=== PATIENT | female | born 1970 | race African-American/Black ===

== ENCOUNTER 2018-04-16 06:21 | Day surgery (SDC) | payer OTHER ==
[~2018-04-16 06:21] MED LIST: Buffered Lidocaine 0.9% SYRIN* 5 ML/SYR SYRINGE INTRADERM ONE
[2018-04-16] MEDS ORDERED: ceFAZolin 2 GM PREMIX in ORs 2 GM/50 ML BAG IVPB ONE (06:58)
[2018-04-16] MEDS ORDERED: Buffered Lidocaine 0.9% SYRIN* 5 ML/SYR SYRINGE ONE (06:58)
[2018-04-16] MEDS ORDERED: Bupivacaine 0.5% SDV PF* 30ML VIAL ONE (07:52)
[2018-04-16] MEDS ORDERED: Bupivacaine 0.25% SDV* 30 ML ONE (07:52)
[2018-04-16] MEDS ORDERED: fentaNYL* 50 MCG/ML 2 ML VIAL (100 MCG VIAL) ONE ×2 (08:06→08:46)
[2018-04-16] MEDS ORDERED: Midazolam* 1 MG/ML 2 ML VIAL (2 MG) ONE (08:06)
[2018-04-16] MEDS ORDERED: Ondansetron INJ* 2 MG/ML VIAL ONE (08:34)
[2018-04-16] MEDS ORDERED: Dexamethasone IV* 4 MG/ML 1 ML (4 MG) ONE (08:34)
[2018-04-16] MEDS ORDERED: Bupivacaine 0.5% W/EPI SDV* 10 ML VIAL INJ ONE (08:34)
[2018-04-16] MEDS ORDERED: Lidocaine 2% PF * 5 ML VIAL ONE (08:34)
[2018-04-16] MEDS ORDERED: Propofol* 10 MG/ML 20 ML BTL IV PUSH ONE (08:34)
[2018-04-16] MEDS ORDERED: HYDROmorphone INJ1* 1 MG/ML SYRINGE IV PRN (09:16)
[2018-04-16] MEDS ORDERED: Naloxone* 0.4 MG/ML 1 ML VIAL IV PRN (09:16)
[2018-04-16] MEDS ORDERED: Ketorolac INJ* 30 MG/ML 1 ML VIAL IV PRN (09:16)
[2018-04-16] MEDS ORDERED: oxyCODONE TAB* 5 MG TAB PO PRN (09:16)
[2018-04-16] MEDS ORDERED: Ketorolac INJ* 30 MG/ML 1 ML VIAL ONE (09:38)
[2018-04-16 10:51] VITALS: BP 140/91
--- NOTE | 2018-04-16 17:40 | OP ---
Operative Report - Blank - Operative Report Date of Operation: 04/16/18 Note: PATIENT: Josephine Garibay DATE OF : 1970 DATE OF SURGERY: 04/16/2018 SURGEON: Dom Cartwright MD FRUIT PICKER: DB Garcia, whos assistance was necessary for positioning, retraction, help with instrumentation, and closure. ANESTHESIOLOGIST: Dr. Caceres PREOPERATIVE DIAGNOSIS: Left ankle osteochondral lesion of the talus POSTOPERATIVE DIAGNOSIS: Left ankle osteochondral lesion of the talus OPERATION: 1. Left ankle arthroscopy with extensive debridement. 2. Curettage and microfracture of talar osteochondral lesion. ANESTHESIA: LMA + block IMPLANTS: none TOURNIQUET TIME: Less than 1 hour with a well-padded thigh tourniquet at 250mmHg SPECIMENS: none ESTIMATED BLOOD LOSS: minimal COMPLICATIONS: none STATUS: Stable from the operating room to the recovery room and then home. INDICATIONS FOR PROCEDURE: Josephine Has had persistent pain at her left ankle and an OLT. Both operative and non operative treatment alternatives were reviewed. Further, the nature and risks of surgery were reviewed in careful detail, in the office as well as the pre-operative holding area. Our discussions regarding the risks of surgery included, but were not limited to, infection, wound problems, nerve injury, neuroma, RSD, persistent symptoms, blood clot, failure of the surgery, and even the remote chance of catastrophic complication, including loss of limb. DESCRIPTION OF PROCEDURE: The patient was seen in the preoperative holding unit and informed written consent was obtained. The appropriate extremity was marked. The patient was then brought to the operating room and carefully positioned on the operating room table. Anesthesia was induced. All bony prominences were padded with great care. A chlorhexidine based pre-scrub was performed followed by a chloraprep prep and drape in standard sterile fashion. A surgical safety pause was then conducted in which we confirmed the appropriate patient, extremity, planned procedure, availability of equipment, indication and administration of prophylactic antibiotics, and DVT prophylaxis in the form of a compression boot on the non-surgical extremity. An Esmarch exsanguination of the limb was then performed and the tourniquet inflated. The leg was positioned in the noninvasive ankle arthroscopy leg workman setup. I began by establishing the anteromedial portal. I utilized a spinal needle for this. Great care was taken to protect the superficial neurovascular structures. Under direct visualization, I then established an anterolateral portal. Great care was taken to protect the superficial peroneal nerve. I utilized the full radius shaver to remove a considerable amount of synovitis from the anterior aspect of the ankle joint. This was carefully removed to give a nice view of the ankle joint. There was an apparent osteochondral lesion of the talus at the lateral talar dome. There were no additional chondral lesions appreciated and the rest of the cartilage looked quite good. At this point, I utilized a ringed curette to remove loose debris from within the osteochondral lesion. This was curetted back to a stable rim around the perimeter of lesion. The calcified cartilage layer was then removed. I then utilized the microfracture awl to microfracture the lesion. There was healthy bleeding from the subchondral bone. I then again utilized the full radius shaver to remove all additional debris from the ankle joint. I removed the arthroscopic equipment and closed the portals utilizing 3-0 nylon suture. At this point, a sterile dressing was applied. The patient was then awakened from anesthesia and transferred to the recovery room in stable condition. There were no complications. All needle and sponge counts were correct at the end of the case. ATTESTATION: I attest I was present and scrubbed and performed the critical portions of the procedure myself. POSTOPERATIVE PLAN: The patient will remain nonweightbearing for an anticipated duration of four weeks. Follow up will be in two weeks for likely suture removal, Steri-Strip application.
== END 2018-04-16 10:52 | disposition home or self-care (01) ==
LOC: OR 06:21
PROVIDERS: ATTEND Orthopaedic Surgery
DX: M93.272 Osteochondritis dissecans, left ankle and joints of left foot (principal); Z87.891 Personal history of nicotine dependence; G89.18 Other acute postprocedural pain; I10 Essential (primary) hypertension; F41.9 Anxiety disorder, unspecified
CPT/HCPCS: J0690; J1100; J1885; J2250; J2405; J2704; J3010

== ENCOUNTER 2018-07-06 12:19 | Emergency (ER) | payer OTHER ==
--- OUTSIDE RECORDS SUMMARY | 2018-07-06 13:03 | XMS REPORT | Continuity of Care Document ---
:1970 External Reference #:[id number] Author Name Bishop Michelle Care Team Providers Name Role Phone Rama Daniels MD Primary Care Physician Unavailable Payers Type Date Identification Numbers Payment Provider Subscriber Effective: Policy Number: [id number] [facility] Mariam Palomares 2016 (Oon) Group Number: [id number] [address] Group Name: [place] [address] PayID: [id number] Policy Number: [id number] Medicare Mariam Palomares PayID: [id number] [address] [place] [address] Policy Number: [id number] Medicaid Mariam Palomares PayID: [id number] [address] [place] [address] Advance Directives Description No Information Available Problems Date Description Provider Status Onset: 03/05/2017 Viral hepatitis C London Leroy M.D.,FACP Active Note: VL negative Onset: 10/29/2011 Benign essential hypertension Esmer Joseph M.D. Onset: 05/16/2014 Bipolar disorder Brian Macias M.D. 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[place], Active intervertebral disc without Margarito,FACP myelopathy Onset: 11/13/2016 External hemorrhoids Fredy Diallo NP Active Onset: 11/13/2016 Constipation Fredy Diallo NP Active Onset: 01/14/2017 Hypoxemia Tahira Matias DNP, RN, Active DELIVERY AIDE-BC Onset: 01/14/2017 Hypersomnia Tahira Matias DNP, RN, Active DELIVERY AIDE-BC Onset: 01/14/2017 Snoring Tahira Matias DNP, RN, Active DELIVERY AIDE-BC Onset: 03/27/2018 Osteochondritis dissecans Dom Cartwright MD Active Onset: 04/16/2018 Other synovitis and Dom Cartwright MD Active tenosynovitis, unspecified ankle and foot Onset: 01/24/2014 Sprain of ankle Jesus Malave M.D. Inactive Inactive: 01/20/2015 Onset: 06/27/2014 Low back pain Amilcar Sr M.D. Inactive Inactive: 02/01/2015 Onset: 11/19/2016 Difficulty breathing Lachelle Duggan MD Inactive Inactive: 03/05/2017 Onset: 07/01/2014 Chronic hepatitis C London Leroy M.D.,FACP Resolved Resolved: 02/01/2015 Note: exposure, zero viral load Onset: 05/16/2014 Anemia Brian Macias M.D. Resolved Resolved: 02/01/2015 Family History Date Family Member(s) Problem(s) Comments General Diabetes Father due to Alcohol () Related Father due to Stroke () Mother Diabetes, Insulin Dependent Mother Hypertension Children 3 sons all alive and well Siblings 3 sisters all with hypertension 2 sisters with DM First Brother Hypertension 1/2 brother Maternal Grandfather due to Hypertension () Maternal Grandfather due to Diabetes () Maternal Grandmother due to Diabetes () Maternal Grandmother due to Hypertension () Social History Type Date Description Comments Sex Unknown Marital Status Lives With Boyfriend 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, 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 Tobacco Use Start: Unknown End: Former Cigarette Smoker Unknown Smoking Status Reviewed: 07/06/18 Former Cigarette Smoker ETOH Use 07/01/2014 Occasionally consumes alcohol Tobacco Use Start: Unknown End: Patient is a former smoker Unknown Recreational Drug Use Denies Drug Use Exercise Type/Frequency Exercises sporadically Currently Active Patient is currently sexually active Allergies, Adverse Reactions, Alerts Date Description Reaction Status Severity Comments 10/29/2011 Sulfa Antibiotics hives Active 10/29/2011 Buspar nausea, vomiting Active 11/11/2013 [place] Active Medications Medication Date Status Form Strength Qnty SIG Indications Ordering Provider Gabapentin 07/06 Active Capsules 300mg 90cap take one G89.4 s tablet MD Jeremiah three times a day Cane 06/12 Active Misc use as M93.272 needed anahi Cartwright MD stability Aspirin 04/16 Active Tablets 325mg 14tab take 1 s tab daily Ananda, x 14 days M.D. post op Knee Scooter 04/15 Active M93.272 MD Gabbie Oxycodone HCL 03/05 Active Tablets 20mg 60tab 07/08-1 tab s by mouth Peng Leroy, every 4 M.D.,FACP hours as needed Zyrtec Allergy 12/05 Active Tablets 10mg 30tab 1 by s mouth Peng Leroy, every day M.D.,FACP Ibuprofen 09/11 Active Tablets 800mg 30tab take 1 s tablet by Ananda mouth M.D. three times daily as needed pain Latuda 10/12 Active Tablets 80mg take 1 tablet by Peng Leroy, mouth at M.D.,FACP bedtime Compression 06/23 Active Misc 20-30MMHG 1Pair knee high, allyson Tomas M.D. during day, remove at night Lactulose 05/25 Active Solution 20GM/30ML 1500m 30 l millilite Peng Leroy, rs by M.DRowena,FACP mouth once a day for 1 week, then as needed severe constipat ion Ondansetron HCL 02/22 Active Tablets 4mg 60tab one to s two Thom, tablets M.DRowena every 8 hours as needed for nausea Colace 02/21 Active Capsules 100mg 60cap take 1 K59.09 s capsule Peng Leroy, by mouth M.D.,FACP two times daily as needed - maximum daily dose of 2 per day Amitiza 01/20 Active Capsules 24mcg 180ca take one K59.09 ps capsule Peng Leroy, by mouth M.DRowena,FACP twice a day Amlodipine 05/17 Active Tablets 10mg 90tab take 1 [place] s tablet by Peng Leroy, mouth M.D.,FACP once daily Divalproex Sodium Active Tablets ER 500mg 90tab 3 tabs at [facility] Owen ER /0000 24HR s at Peng Leroy, bedtime M.DRowena,FACP Alprazolam Active Tablets 2mg 1/2 qid Unknown /0000 Adderall Active Tablets 30mg 1 by Unknown /0000 mouth once daily Anusol-HC 11/13 Hx Suppository 25mg 12uni 1 supp pr K64.8 ts bid-hasnt AARON Diallo - used them 09/22 Dibucaine 11/13 Hx Ointment 1% 28.35 apply K64.8 0gm topical Yoel PROGRESS DEVELOPER - oint 09/22 sparingly up to 6 times a day Cipro 07/02 Hx Tablets 250mg 14tab one by N39.0 s mouth Varn, N.P. - twice 07/09 daily for 7 days [facility] 01/22 Hx Syrup 5mg/5ML 354ml 10 J30.2 Allergy millilite Peng Leroy, - rs by Margarito,FACP 01/13 mouth daily Anusol-HC 10/12 Hx Suppository 25mg 12uni 1 supp pr K64.9 ts bid AARON Diallo - 10/12 Dibucaine 10/12 Hx Ointment 1% 28.35 apply K64.9 Fredy 0gm topical Yoel PROGRESS DEVELOPER - oint 10/12 sparingly up to 6 times a day Lidocaine 10/12 Hx Cream 5% 30gm apply Fredy (Anorectal) thin Yoel PROGRESS DEVELOPER - layer 09/22 topically to hemorrhoi ds as needed for pain Proctosol HC 10/12 Hx Cream 2.5% 28.35 apply Fredy 0gm tid; AARON Diallo - alternate 09/22 with the lidocaine cream Latuda 10/04 Hx Tablets 40mg 60tab 2 by [place] s mouth Peng Leroy, - every day M.D.,FACP 10/12 Oxycodone-Acetami 05/16 Hx Tablets 10-325mg 120ta take 1 [place] bs tablet by Peng Leroy, - mouth M.D.,FACP 09/05 every to 6 hours as needed for pain Movantik 05/16 Hx Tablets 25mg 30tab 1 by R10.31 Fredy s mouth AARON Diallo - every 05/25 Tizanidine HCL 04/17 Hx Capsules 4mg 30cap 1 cap bid s Ordering - Provider 05/16 Oxycodone HCL 04/13 Hx Capsules 5mg 30cap 1 tab by River s mouth Jessica, - every 4-6 M.D. 05/16 hours needed Oxycodone HCL 03/01 Hx Tablets 10mg 60tab 1 by Jesus s mouth Ananda, - every 4-6 M.D. 04/13 hours needed pain Ondansetron 02/22 Hx Tablets 4mg 15tab 1 three Jesus Dispers s sepideh a Ananda, - day as M.D. 05/16 needed for nausea Ibuprofen 02/21 Hx Tablets 600mg 30tab 1 tab po Fredy s q 6 hrs AARON Diallo - prn 10/12 Aspirin 02/21 Hx Tablets 325mg 30tab 1 by Jesus s lefty Malave, - every day M.D. 10/12 until post op visit Metronidazole 01/30 Hx Gel 0.75% 25g 5 grams Fredy once AARON Diallo - daily 01/30 vaginally x's 5 days Clindamycin HCL 01/30 Hx Capsules 300mg 14cap 1 capsule Fredy s po bid AARON Diallo - x's 7 Ferrous Fumarate 09/21 Hx Tablets 324mg 90tab 1 every s day Peng Leroy, - M.D.,[facility] 01/20 Oxycodone HCL 07/01 Hx Tablets 5mg 90tab 1 by 724.2 Fredy s mouth Cymraes, PROGRESS DEVELOPER - three 03/01 times day as needed Meloxicam 07/01 Hx Tablets 7.5mg 60tab 1 by 724.2 s mouth Peng Leroy, - twice a M.D.,[facility] Fiber-Lax 07/01 Hx Tablets 625mg 360ta take 2 724.2 bs tablets Peng Leroy, - by mouth Margarito,[facility] 01/20 two times a day Lactulose 07/01 Hx Solution 20GM/30ML 1bott 30 724.2 le millilite Peng Leroy, - rs by Margarito,[facility] 01/20 mouth twice a day as needed severe constipat ion Hydrochlorothiazi 05/17 Hx Capsules 12.5mg 60cap 1 cap po Brian s daily Macias, - M.D. 07/01 Tramadol HCL 05/16 Hx Tablets 50mg 60tab 1 by 724.2 s mouth Remberto, - every 6 M.D. 07/01 hours needed pain Lisinopril 05/16 Hx Tablets 10mg 60tab 1 by 401.9 s mouth po Macias, - twice a M.D. Hydrocodone-Ibupr 03/02 Hx Tablets 7.5-200mg 120ta 1 every Unknown bs 6 hours - as needed 04/12 Oxycodone HCL 02/03 Hx Tablets 5mg 80tab 1-2 tab s by mouth Ananda, - every 4-6 M.D. 04/12 hours needed for breakthro ugh pain Aspirin Ec 01/[address] 325mg 30tab One s tablet po Gunnar, - daily M.D. 04/12 Acetaminophen ER 01/25 Hx Tablets ER 650mg 120ta One bs tablet po Gunnar, - every 6 M.D. 04/12 hours pr pain. Do not exceed 4 tablets per day. Ibuprofen 01/25 Hx Tablets 600mg 90tab take one s tab by Cyrus, - mouth M.D. 01/20 times a day as needed pain and inflammat ion. Tramadol HCL 11/10 Hx Tablets 50mg 50tab four s times a Ananda, - day as M.D. 04/12 needed Percocet 10/12 Hx Tablets 5-325mg 60tab 1 tab by s mouth Ananda, - every 4-6 M.D. 04/12 hours needed for pain [place] 10/06 Hx Tablets 5-325mg 40tab 1-2 tab s by mouth Ananda, - every 6 M.D. 11/11 hours needed pain Klor-Con M20 07/05 Hx Tablets ER 20Meq 45tab 1.5 s tablets Macias, - by mouth M.D. 07/01 every day Klor-Con 10 06/01 Hx Tablets ER 10Meq 60tab 1 po qd Erlin Russell M.D. 07/05 Klor-Con 05/25 Hx Packet 20Meq 30uni 1 po qd ts Leroy - M.DRowena 06/01 Ferrous Sulfate 05/11 Hx Tablets 324(65Fe) 60tab 1 po bid mg s Erlin Harper M.D. 10/05 Ultram 03/25 Hx Tablets 50mg 40tab 1 po q6 s hr terri Mosley, - pain M.D. 10/05 Ferrous Sulfate 02/09 Hx Tablets 325(65Fe) 60tab 1 po bid mg girish Mcgregor - M.DRowena 05/11 Fluconazole 01/13 Hx Tablets 150mg 2tabs 1 po qd 112.9 Samanta /2013 Erlin Mcgregor M.DRowena 10/05 Alprazolam 01/13 Hx Tablets 0.5mg 10tab take 1 300.02 Basia s tab 2 x Leroy, - per day M.D. 10/05 as needed for anxiety Citalopram 01/13 Hx Tablets 10mg 30tab Take One 300.02 Basia Hydrobromide s Tablet By Leroy, - Mouth M.D. 03/17 Daily Flagyl 11/05 Hx Tablets 250mg 40tab 1 po qid Erlin Russell M.D. 01/13 Metrogel-Vaginal 11/03 Hx Gel 0.75% 1unit apply s once a Leroy, - day x 7 MZohra Flagyl 09/24 Hx Tablets 250mg 40tab 1 po qid Erlin Russell M.D. 10/29 Ferrous Fumarate 09/22 Hx Tablets 325(106Fe 30tab 1 Tablet ) mg s qd Erlin Harper M.D. 02/09 Klor-Con 10 09/22 Hx Tablets ER 10Meq 30tab 2 po qd Erlin Russell M.D. 05/25 Diazepam Hx Tablets 5mg 2tabs - 10/28 Hydrochlorothiazi Hx Tablets 25mg 30tab 1 po qd Basia Erlin Russell M.D. 04/12 Norvasc Hx Tablets 10mg 30tab 1 po qd Erlin Russell M.D. 05/16 Klor-Con Hx Tablets ER 20Meq 30tab 1 po qd s - 09/22 Ferrous Hx 325(65Fe) 1 Tablet Unknown mg qd - 09/22 Hydroxyzine HCL Hx Tablets 25mg 40tab 2 po qhs s - 10/28 Diazepam Hx Tablets 10mg 60tab 1 po prn girish anxiety Erlin Harper M.D. 12/31 Tramadol HCL 00/00 Hx Unknown - 04/12 Ibuprofen 00/00 Hx Unknown - 01/25 Ferrous Sulfate Hx Tablets 325mg 90tab 1 every Bryant s day Erlin Bridges M.D. 09/21 Flexeril Hx Tablets 10mg 60tab 1 by s mouth - three 01/20 times day as needed Naprosyn Hx Tablets 500mg 60tab twice Unknown /0000 s daily - with food 05/16 as needed Trazodone HCL Hx Tablets 100mg 30tab 2 by [place] /0000 s mouth Peng Leroy, - every M.D.,FACP 09/22 night at bedtime Ibuprofen Hx Tablets 800mg 90tab by mouth 724.2 Unknown /0000 s three - times a 07/01 day needed Diazepam Hx Tablets 10mg 90tab 1 by Unknown /0000 s mouth - three 01/20 times day prn for anxiety Lupeda Hx (Bipolar Unknown /0000 Med) - takes 07/01 Hydrochlorothiazi Hx Tablets 25mg 30tab 1 by Unknown de /0000 s mouth - every day 05/16 Latuda Hx Tablets 80mg 30tab take 1 [place] /0000 s tablet by Peng Leroy, - mouth at M.D.,FACP 10/04 bed Alprazolam Hx Tablets 1mg take 1 Unknown /0000 tablet by - mouth 11/13 times a day if needed Diclofenac Sodium Hx Tablets DR 75mg take 1 Unknown /0000 tablet - twice a 09/05 day food Methocarbamol Hx Tablets 750mg 1 by Unknown /0000 mouth 4 - times 10/12 daily needed Percocet Hx Tablets 5-325mg 1-2 by Unknown /0000 mouth - every 4 10/12 to hours as needed pain Oxycodone HCL Hx Tablets 10mg 1 tablet Unknown /0000 by mouth - tid prn 10/12 Baclofen Hx Tablets 10mg take 1/2 Unknown /0000 tab every - 8 hours 07/02 as needed for muscle spasm Medications Administered in Office Medication Date Status Form Strength Qnty SIG Indications Ordering Provider PPD Administered Injection Fredy 7 Cymraes, PROGRESS DEVELOPER PPD Administered Injection Fredy 5 Cymraes, PROGRESS DEVELOPER PPD Administered Injection Nurse Visit 4 C PPD Administered Injection Basia Harper M.D. Immunizations CPT Code Status Date Vaccine Lot # [id number] Given 04/12/2015 Afluria Vaccine 64745 Given 01/25/2015 Tdap - Tetanus/Diptheria/Acellular Pertussis [id number] 21144 Given 08/27/2013 Measles Mumps And Rubella MMR [id number] Given 05/03/1982 Tetanus And Diptheria (Td) For Adult Use Preservative Free 49650 Given 10/22/1972 Measles Mumps And Rubella MMR [id number] Given 01/25/1971 DTaP Vaccine Younger Than 7 71683 Given 08/22/1970 Measles Mumps And Rubella MMR [id number] Given 06/13/1970 Measles Mumps And Rubella MMR 19338 Given 1970 DTaP Vaccine Younger Than 7 38107 Given 1970 DTaP Vaccine Younger Than 7 74299 Given 1970 DTaP Vaccine Younger Than 7 Vital Signs Date Vital Result Comment 07/06/2018 11:35am Height 65.5 inches 5'5.50" Heart Rate 85 /min BP Systolic Sitting 178 mmHg BP Diastolic Sitting 106 mmHg O2 % BldC Oximetry 99 % 06/02/2018 9:53am Height 65.5 inches 5'5.50" Weight 180.00 lb Respiratory Rate 16 /min Pain Level 9 BMI (Body Mass Index) 29.5 kg/m2 05/01/2018 8:47am Heart Rate 76 /min BP Systolic 136 mmHg BP Diastolic 86 mmHg Respiratory Rate 16 /min Body Temperature 97.8 F Pain Level 8 03/27/2018 1:05pm Height 65.5 inches 5'5.50" Weight 180.00 lb BP Systolic 128 mmHg BP Diastolic 88 mmHg Respiratory Rate 18 /min Pain Level 10 BMI (Body Mass Index) 29.5 kg/m2 02/25/2018 11:13am Height 65.5 inches 5'5.50" Heart Rate 55 /min BP Systolic 136 mmHg BP Diastolic 94 mmHg Respiratory Rate 20 /min Pain Level 0 O2 % BldC Oximetry 97 % 02/11/2018 10:54am Height 65.5 inches 5'5.50" Weight 180.00 lb Heart Rate 54 /min BP Systolic Sitting 130 mmHg BP Diastolic Sitting 86 mmHg Respiratory Rate 18 /min Pain Level 8 BMI (Body Mass Index) 29.5 kg/m2 12/31/2017 3:11pm Height 65.5 inches 5'5.50" Heart Rate 67 /min BP Systolic 114 mmHg BP Diastolic 80 mmHg Respiratory Rate 16 /min Pain Level 8 O2 % BldC Oximetry 93 % 09/24/2017 11:50am Height 65.5 inches 5'5.50" Weight 181.00 lb Heart Rate 72 /min BP Systolic Sitting 154 mmHg BP Diastolic Sitting 88 mmHg Respiratory Rate 12 /min Pain Level 8 BMI (Body Mass Index) 29.7 kg/m2 03/05/2017 2:03pm Heart Rate 98 /min BP Systolic Sitting 170 mmHg BP Diastolic Sitting 88 mmHg Body Temperature 97.9 F O2 % BldC Oximetry 98 % 01/14/2017 4:25pm Height 65.5 inches 5'5.50" Weight 181.00 lb Heart Rate 68 /min BP Systolic 130 mmHg BP Diastolic 88 mmHg Respiratory Rate 16 /min Pain Level 8 BMI (Body Mass Index) 29.7 kg/m2 11/19/2016 11:57am Height 65.5 inches 5'5.50" Weight 187.00 lb Heart Rate 65 /min BP Systolic Sitting 128 mmHg BP Diastolic Sitting 82 mmHg Respiratory Rate 16 /min O2 % BldC Oximetry 98 % BMI (Body Mass Index) 30.6 kg/m2 Neck Circumference in inches 14 11/13/2016 8:21am Height 65.5 inches 5'5.50" Weight 187.00 lb Heart Rate 66 /min BP Systolic Sitting 148 mmHg BP Diastolic Sitting 94 mmHg Body Temperature 98.0 F O2 % BldC Oximetry 97 % BMI (Body Mass Index) 30.6 kg/m2 10/09/2016 11:05am Height 65.5 inches 5'5.50" Weight 189.25 lb Heart Rate 71 /min BP Systolic Sitting 152 mmHg BP Diastolic Sitting 88 mmHg Body Temperature 99.4 F O2 % BldC Oximetry 97 % BMI (Body Mass Index) 31.0 kg/m2 07/02/2016 3:43pm Height 65.5 inches 5'5.50" Weight 187.00 lb Heart Rate 57 /min BP Systolic 124 mmHg BP Diastolic 70 mmHg Body Temperature 98.6 F O2 % BldC Oximetry 99 % BMI (Body Mass Index) 30.6 kg/m2 06/19/2016 11:23am Height 65.5 inches 5'5.50" Weight 185.00 lb BP Systolic Sitting 122 mmHg BP Diastolic Sitting 80 mmHg Pain Level 9 BMI (Body Mass Index) 30.3 kg/m2 01/10/2016 4:10pm Height 65 inches 5'5" Weight 190.00 lb Respiratory Rate 16 /min Pain Level 7 BMI (Body Mass Index) 31.6 kg/m2 10/17/2015 8:13am Weight 190.00 lb Heart Rate 72 /min BP Systolic Sitting 128 mmHg BP Diastolic Sitting 88 mmHg 10/13/2015 2:36pm Height 65 inches 5'5" Weight 190.00 lb Heart Rate 68 /min BP Systolic Sitting 134 mmHg BP Diastolic Sitting 96 mmHg Body Temperature 97.9 F O2 % BldC Oximetry 95 % BMI (Body Mass Index) 31.6 kg/m2 09/06/2015 12:00pm Height 65 inches 5'5" Weight 165.00 lb Heart Rate 88 /min BP Systolic Sitting 145 mmHg BP Diastolic Sitting 94 mmHg Body Temperature 99.0 F Pain Level 10 10 O2 % BldC Oximetry 95 % BMI (Body Mass Index) 27.5 kg/m2 08/29/2015 8:24am Heart Rate 86 /min BP Systolic Sitting 122 mmHg BP Diastolic Sitting 88 mmHg 07/21/2015 8:54am Height 65 inches 5'5" Weight 179.00 lb Pain Level 8 BMI (Body Mass Index) 29.8 kg/m2 06/21/2015 2:13pm Height 65 inches 5'5" Weight 179.00 lb Heart Rate 70 /min BP Systolic 130 mmHg BP Diastolic 80 mmHg Pain Level 10 BMI (Body Mass Index) 29.8 kg/m2 05/16/2015 2:38pm Height 65 inches 5'5" Weight 179.00 lb Pain Level 5 BMI (Body Mass Index) 29.8 kg/m2 05/16/2015 10:06am Height 65 inches 5'5" Weight 179.00 lb Heart Rate 72 /min BP Systolic 150 mmHg BP Diastolic 88 mmHg Body Temperature 98.8 F BMI (Body Mass Index) 29.8 kg/m2 04/28/2015 3:00pm Height 65 inches 5'5" Weight 179.00 lb Pain Level 3 BMI (Body Mass Index) 29.8 kg/m2 03/31/2015 11:14am Height 65 inches 5'5" Weight 179.00 lb Pain Level 9 BMI (Body Mass Index) 29.8 kg/m2 03/23/2015 2:58pm Height 65 inches 5'5" Weight 179.00 lb Pain Level 3 BMI (Body Mass Index) 29.8 kg/m2 03/01/2015 4:09pm Height 65 inches 5'5" Weight 179.00 lb Body Temperature 97.3 F Pain Level 8 BMI (Body Mass Index) 29.8 kg/m2 02/15/2015 4:08pm Height 65 inches 5'5" Weight 179.00 lb Heart Rate 63 /min BP Systolic 160 mmHg BP Diastolic 100 mmHg BMI (Body Mass Index) 29.8 kg/m2 02/15/2015 3:13pm Height 65 inches 5'5" Weight 179.00 lb Pain Level 8 BMI (Body Mass Index) 29.8 kg/m2 02/08/2015 2:41pm Height 65 inches 5'5" Weight 179.00 lb Pain Level 10 BMI (Body Mass Index) 29.8 kg/m2 02/01/2015 4:20pm Height 65.5 inches 5'5.50" Weight 179.50 lb Heart Rate 73 /min BP Systolic Sitting 120 mmHg BP Diastolic Sitting 80 mmHg O2 % BldC Oximetry 96 % BMI (Body Mass Index) 29.4 kg/m2 01/25/2015 2:42pm Height 65.5 inches 5'5.50" Weight 179.00 lb Heart Rate 114 /min BP Systolic Sitting 132 mmHg BP Diastolic Sitting 90 mmHg Body Temperature 98.4 F O2 % BldC Oximetry 93 % BMI (Body Mass Index) 29.3 kg/m2 01/20/2015 11:02am Weight 183.00 lb Heart Rate 68 /min BP Systolic Sitting 142 mmHg BP Diastolic Sitting 92 mmHg Body Temperature 98.6 F O2 % BldC Oximetry 98 % 07/01/2014 3:32pm Weight 165.00 lb Heart Rate 76 /min BP Systolic Sitting 112 mmHg BP Diastolic Sitting 66 mmHg Body Temperature 98.9 F 06/27/2014 3:19pm Height 65 inches 5'5" Weight 166.00 lb Heart Rate 72 /min BP Systolic Sitting 112 mmHg BP Diastolic Sitting 78 mmHg Pain Level 8 back/L leg BMI (Body Mass Index) 27.6 kg/m2 05/16/2014 2:12pm Height 65 inches 5'5" Weight 164.50 lb Heart Rate 69 /min BP Systolic Sitting 114 mmHg BP Diastolic Sitting 78 mmHg Body Temperature 97.4 F O2 % BldC Oximetry 98 % BMI (Body Mass Index) 27.4 kg/m2 05/16/2014 11:09am Height 65 inches 5'5" Weight 164.00 lb Heart Rate 84 /min BP Systolic Sitting 130 mmHg BP Diastolic Sitting 86 mmHg Pain Level 10 Neck BMI (Body Mass Index) 27.3 kg/m2 04/13/2014 1:37pm Height 65 inches 5'5" Heart Rate 64 /min BP Systolic 140 mmHg BP Diastolic 90 mmHg 03/23/2014 2:27pm Height 65 inches 5'5" Weight 168.00 lb Pain Level 6 BMI (Body Mass Index) 28.0 kg/m2 03/17/2014 9:08am Weight 158.00 lb Heart Rate 74 /min BP Systolic Sitting 122 mmHg BP Diastolic Sitting 70 mmHg 03/02/2014 3:57pm Height 65 inches 5'5" Weight 155.00 lb Heart Rate 71 /min BP Systolic 147 mmHg BP Diastolic 90 mmHg BMI (Body Mass Index) 25.8 kg/m2 02/11/2014 10:10am Height 65 inches 5'5" Weight 155.00 lb Body Temperature 98.7 F BMI (Body Mass Index) 25.8 kg/m2 01/28/2014 9:04am Height 65 inches 5'5" Weight 155.00 lb Body Temperature 97.1 F BMI (Body Mass Index) 25.8 kg/m2 01/13/2014 3:10pm Height 65 inches 5'5" Weight 155.00 lb Heart Rate 71 /min BP Systolic 157 mmHg BP Diastolic 100 mmHg BMI (Body Mass Index) 25.8 kg/m2 11/10/2013 1:46pm Height 65 inches 5'5" Weight 155.00 lb Heart Rate 74 /min BP Systolic 134 mmHg BP Diastolic 92 mmHg BMI (Body Mass Index) 25.8 kg/m2 10/26/2013 3:12pm Height 65 inches 5'5" Weight 155.00 lb Heart Rate 68 /min BP Systolic 122 mmHg BP Diastolic 79 mmHg BMI (Body Mass Index) 25.8 kg/m2 08/27/2013 9:05am Heart Rate 57 /min BP Systolic Sitting 130 mmHg BP Diastolic Sitting 78 mmHg 03/25/2013 11:21am Height 65 inches 5'5" Weight 155.00 lb Heart Rate 65 /min BP Systolic 140 mmHg BP Diastolic 94 mmHg BMI (Body Mass Index) 25.8 kg/m2 02/02/2013 10:07am Weight 157.00 lb Heart Rate 62 /min BP Systolic Sitting 110 mmHg BP Diastolic Sitting 88 mmHg 01/13/2013 10:48am Weight 155.00 lb Heart Rate 93 /min BP Systolic Sitting 130 mmHg BP Diastolic Sitting 90 mmHg 10/29/2012 10:36am Weight 162.75 lb Heart Rate 61 /min BP Systolic Sitting 137 mmHg BP Diastolic Sitting 91 mmHg 09/25/2012 11:57am Height 65 inches 5'5" Weight 156.25 lb Heart Rate 78 /min BP Systolic Sitting 118 mmHg BP Diastolic Sitting 78 mmHg BMI (Body Mass Index) 26.0 kg/m2 09/22/2012 1:04pm Height 65 inches 5'5" Weight 156.00 lb Heart Rate 70 /min BP Systolic Sitting 120 mmHg BP Diastolic Sitting 70 mmHg BMI (Body Mass Index) 26.0 kg/m2 12/11/2011 9:48am Height 65 inches 5'5" Weight 151.00 lb Heart Rate 64 /min BP Systolic Sitting 130 mmHg BP Diastolic Sitting 90 mmHg BMI (Body Mass Index) 25.1 kg/m2 10/29/2011 9:07am Height 65 inches 5'5" Weight 153.00 lb Heart Rate 54 /min BP Systolic 140 mmHg BP Diastolic 80 mmHg BP Systolic Sitting 140 mmHg BP Diastolic Sitting 80 mmHg BP Systolic Standing 138 mmHg BP Diastolic Standing 84 mmHg Respiratory Rate 16 /min BMI (Body Mass Index) 25.5 kg/m2 Results Test Date Facility Test Result H/L Range Note Drug Abuse 03/05/2017 [facility] Urine Amphetamine Negative ng/ mL N 1 [address] [place] [address] [phone] Urine Barbiturates Negative ng/mL N 2 Urine Benzodiazepines Presumptive Posi <SEE NOTE> ng/mL N 3 Urine Cocaine Negative ng/mL N 4 Urine Phencyclidine Negative ng/mL N Cutoff: 25 Urine Tetrahydrocannabinol Negative ng/mL N Cutoff: 50 5 Creatinine, Urine 68.1 mg/dL N Specific [place] 1.007 N pH 7.3 N Oxidants Negative N 6 Adulterants Comment Normal N Codeine, Ur Not Detected ng/mL N Cutoff: 25 7 Abqslin-5-ftdy-glucuronide, Ur Not Detected ng/mL N 8 Morphine, Ur Not Detected ng/mL N Cutoff: 25 9 Hjraksfl-9-vowu-glucuronide, U Not Detected ng/mL N 10 6-monoacetylmorphine, Ur Not Detected ng/mL N Cutoff: 25 11 Hydrocodone, Ur Not Detected ng/mL N Cutoff: 25 12 Norhydrocodone, Ur Not Detected ng/mL N Cutoff: 25 13 Dihydrocodeine, Ur Not Detected ng/mL N Cutoff: 25 14 Hydromorphone, Ur Not Detected ng/mL N Cutoff: 25 15 Srvhgitdhzoon1tjtfacsquwesvly Not Detected ng/mL N 16 Oxycodone, Ur Not Detected ng/mL N Cutoff: 25 17 Noroxycodone, Ur Not Detected ng/mL N Cutoff: 25 18 Oxymorphone, Ur Not Detected ng/mL N Cutoff: 25 19 Vmzjflhybuk-1-afaz-glucuronide Not Detected ng/mL N 20 Noroxymorphone, Ur Not Detected ng/mL N Cutoff: 25 21 Fentanyl, Ur Not Detected ng/mL N Cutoff: 2 22 Norfentanyl, Ur Not Detected ng/mL N Cutoff: 2 23 Meperidine, Ur Not Detected ng/mL N Cutoff: 25 24 Normeperidine, Ur Not Detected ng/mL N Cutoff: 25 25 Naloxone, Ur Not Detected ng/mL N Cutoff: 25 26 Xvipgdnz-7-nkco-glucuronide, U Not Detected ng/mL N 27 Methadone, Ur Not Detected ng/mL N Cutoff: 25 28 Eddp, Ur Not Detected ng/mL N Cutoff: 25 29 Propoxyphene, Ur Not Detected ng/mL N Cutoff: 25 30 Norpropoxyphene, Ur Not Detected ng/mL N Cutoff: 25 31 Tramadol, Ur Not Detected ng/mL N Cutoff: 25 32 O-desmethyltramadol, Ur Not Detected ng/mL N Cutoff: 25 33 Tapentadol, Ur Not Detected ng/mL N Cutoff: 25 34 N-desmethyltapentadol, Ur Not Detected ng/mL N Cutoff: 50 35 Yuruzgrsiv-peng-hucujmohogz, U Not Detected ng/mL N 36 Buprenorphine, Ur Not Detected ng/mL N Cutoff: 5 37 Norbuprenorphine, Ur Not Detected ng/mL N Cutoff: 5 38 Norbuprenorphine glucuronide Not Detected ng/mL N Cutoff: 20 39 Opioid Interpretation See Comment N 40 Benzodiazepine 03/05/2017 [facility] Urine Negative N 41 Confirm Urine [address] Lorazepam ng/[place] [address] GC/MS [phone] Urine Nordiazepam GC/MS Negative ng/mL N 42 Urine Oxazepam GC/MS Negative ng/mL N 43 Urine Temazepam GC/MS Negative ng/mL N 44 Ur Oh Ethyl Flurazepam GC/MS Negative ng/mL N 45 Ur 7 NH Clonazepam GC/MS Negative ng/mL N 46 Ur 7 NH Flunitrazepam GC/MS Negative ng/mL N Cutoff: 50 Ur Alpha Oh Alprazolam GC/MS 839 ng/mL N 47 Ur Alpha Oh Triazolam GC/MS Negative ng/mL N 48 Ur Benzodiazepine Interp Positive. N 49 Basic Metabolic Panel 12/24/2016 [facility] Sodium 138 mmol/L N 133-[address] [place] [address] [phone] Potassium 4.0 mmol/L N 3.5-5.0 Chloride 102 mmol/L N 101-111 Co2 Carbon Dioxide 30 mmol/L N 22-32 Anion Gap 6 mmol/L N 2-11 Glucose 103 mg/dL High 70-100 Blood Urea Nitrogen 11 mg/dL N 6-24 Creatinine 0.83 mg/dL N 0.51-0.95 BUN/Creatinine Ratio 13.3 N 8-20 Calcium 8.8 mg/dL N 8.6-10.3 Egfr Non- 73.7 N >60 Egfr 94.8 N >60 50 Lipid Profile 12/24/2016 [facility] Triglycerides 80 mg/dL N 51 (Trig/Chol/HDL) [address] [place] [address] [phone] Cholesterol 174 mg/dL N 52 HDL Cholesterol 53.7 mg/dL N 53 LDL Cholesterol 104 mg/dL N 54 Ua Routine 07/02/2016 [facility] Ua Specific [place] 1.010 Ua PH 5 Ua Color yellow Ua Appera cloudy Ua WBC -- Ua Protein -- Ua Glucose -- Ua Ketones -- Ua Bilirubin -- Ua Urobilinogen normal Ua Nitrite + Ua Occult Blood -- Urine Culture And 07/02/2016 [facility] Urine Culture SEE RESULT [address] [place] [address] [phone] Laboratory test 05/14/2016 [facility] Hemoglobin A1c 5.7 % N Less [address] (Glyco HGB) than 6.0 [place] [address] [phone] Glucose 98 mg/dL N 70-100 57 Laboratory 02/19/2015 [facility] Semiten SEE RESULTS 58, 59 test finding [address] BELO <[place] [address] NOTE> [phone] Laboratory 01/25/2015 [facility] Cytology SEE RESULT 60 test finding [address] [place], [place] [id number] [phone] GC/Chlamydia 01/25/2015 [facility] Chlamydia Negative N Negative Amplified Rna [address] [place] [address] Rna [phone] Neisseria gonorrhoeae (GC) Rna Negative N Negative 61 Laboratory test 01/25/2015 [facility] Trichomonas Negative N Negative [address] [place] [address] [phone] Gardnerella/Yeast: Vaginal Dna SEE RESULT BELOW 63 HPV Rna Ww/Reflex Genotype Negative N Negative 64 Basic Metabolic Panel 01/21/2015 [facility] Sodium 137 mmol/L N 133-[address] [place], [place] [id number] [phone] Potassium 3.9 mmol/L N 3.5-5.0 Chloride 101 mmol/L N 101-111 Co2 Carbon Dioxide 29 mmol/L N 22-32 Anion Gap 7 mmol/L N 2-11 Glucose 91 mg/dL N 70-100 Blood Urea Nitrogen 10 mg/dL N 6-24 Creatinine 0.78 mg/dL N 0.51-0.95 BUN/Creatinine Ratio 12.8 N 8-20 Calcium 9.0 mg/dL N 8.6-10.3 Egfr Non- 79.9 N >60 Egfr 102.7 N >60 65 Laboratory 01/21/2015 [facility] TSH (Thyroid Stim 0.97 N 0.34 -5.60 66 test finding [address] Horm) ?IU/[place] [address] [phone] Lipid Profile 01/21/2015 [facility] Triglycerides 93 mg/dL N 67 (Trig/Chol/HDL [address] ) [place], [place] [id number] [phone] Cholesterol 201 mg/dL N 68 HDL Cholesterol 53.9 mg/dL N 69 LDL Cholesterol 129 mg/dL N 70 Laboratory 06/28/2014 [facility] Hepatitis C Rna Undetected N Undetected 71 test finding [address] Quantitative IU/[place] [address] [phone] Hepatitis C Genotype TNP N Undetected 72 Comp Metabolic Panel 06/27/2014 [facility] Sodium 135 mmol/L N 133-[address] [place] [address] [phone] Potassium 3.2 mmol/L Low 3.5-5.0 Chloride 100 mmol/L Low 101-111 Co2 Carbon Dioxide 28 mmol/L N 22-32 Anion Gap 7 mmol/L N 2-11 Glucose 89 mg/dL N 70-100 Blood Urea Nitrogen 9 mg/dL N 6-24 Creatinine 0.84 mg/dL N 0.51-0.95 BUN/Creatinine Ratio 10.7 N 8-20 Calcium 9.3 mg/dL N 8.6-10.3 Total Protein 7.9 g/dL N 6.4-8.9 Albumin 4.4 g/dL N 3.2-5.2 Globulin 3.5 g/dL N 2-4 Albumin/Globulin Ratio 1.3 N 1-3 Total Bilirubin 0.70 mg/dL N 0.2-1.0 Alkaline Phosphatase 74 U/L N 34-104 Alt 11 U/L N 7-52 Ast 16 U/L N 13-39 Egfr Non- 73.3 N >60 Egfr 94.3 N >60 74 Urinalysis Profile 06/27/2014 [facility] Urine Color Colorless N [address] [place] [address] [phone] Urine Appearance Clear N Urine Specific [place] 1.004 Low 1.010-1.030 Urine pH 7.0 N 5-9 Urine Urobilinogen Negative N Negative Urine Ketones Negative N Negative Urine Protein Negative N Negative Urine Leukocytes Negative N Negative Urine Blood Negative N Negative Urine Nitrite Negative N Negative Urine Bilirubin Negative N Negative Urine Glucose Negative N Negative CBC Auto 06/27/2014 [facility] White Blood 4.2 10^3/uL Low 4.8 -10.[address] [place] [address] [phone] Red Blood Count 4.41 10^6/uL N 4.0-5.4 Hemoglobin 13.4 g/dL N 12.0-16.0 Hematocrit 39 % N 35-47 Mean Corpuscular Volume 89 fL N 80-97 Mean Corpuscular Hemoglobin 30 pg N 27-31 Mean Corpuscular HGB Conc 34 g/dL N 31-36 Red Cell Distribution Width 13 % N 10.5-15 Platelet Count 178 10^3/uL N 150-450 Mean Platelet Volume 10 um3 N 7.4-10.4 Abs Neutrophils 2.4 10^3/uL N 1.5-7.7 Abs Lymphocytes 1.4 10^3/uL N 1.0-4.8 Abs Monocytes 0.3 10^3/uL N 0-0.8 Abs Eosinophils 0 10^3/uL N 0-0.6 Abs Basophils 0 10^3/uL N 0-0.2 Abs Nucleated RBC 0 10^3/uL N Granulocyte % 57.5 % N 38-83 Lymphocyte % 33.1 % N 25-47 Monocyte % 8.0 % N 1-9 Eosinophil % 0.7 % N 0-6 Basophil % 0.7 % N 0-2 Nucleated Red Blood Cells % 0 N Laboratory test 06/27/2014 [facility] Vitamin B12 358 pg/mL N 180-914 75 finding [address] [place] [address] [phone] Ferritin 278.2 ng/mL N 11-307 76 Folate 12.08 ng/mL N >3.99 77 Iron & Iron Binding 06/27/2014 [facility] Iron 116 g/dL N 50 -212 Capacity [address] [place] [address] [phone] Unsaturated Iron Binding 144 g/dL N Total Iron Binding Capacity 260 g/dL N 250-450 % Iron Saturation 45 % N 15-55 Laboratory test 06/27/2014 [facility] Haptoglobin 130 mg/dL N 30 - 200 78 finding [address] [place] [address] [phone] Lipid Profile 06/27/2014 [facility] Triglycerides 66 mg/dL N 79 (Trig/Chol/HDL) [address] [place] [address] [phone] Cholesterol 206 mg/dL N 80 HDL Cholesterol 62.3 mg/dL N 81 LDL Cholesterol 131 mg/dL N 82 Laboratory 06/27/2014 [facility] TSH (Thyroid 1.66 N 0.34- 5.60 83 test finding [address] Stimulating IU/[place] [address] Horm) [phone] Laboratory 06/27/2014 [facility] Hepatitis C High Abnormal Nonreactive 84 test finding [address] [place] [address] [phone] Drug Abuse 03/17/2014 [facility] Urine Negative N 85 [address] Amphetamine ng/mL [place], [place] [address] [phone] Urine Barbiturates Negative ng/mL N 86 Urine Benzodiazepines Presumptive Posi <SEE NOTE> ng/mL N 87 Urine Cocaine Negative ng/mL N 88 Urine Methadone Negative ng/mL N 89 Urine Opiates Negative ng/mL N 90 Urine Phencyclidine Negative ng/mL N Cutoff: 25 Urine Tetrahydrocannabinol Negative ng/mL N Cutoff: 20 91 Urine Oxycodone Negative ng/mL N 92 Urine Amphetamine Negative ng/mL N 93 Urine Barbiturates Negative ng/mL N 94 Urine Benzodiazepines Presumptive Posi <SEE NOTE> ng/mL N 95 Urine Cocaine Negative ng/mL N 96 Urine Methadone Negative ng/mL N 97 Urine Opiates Negative ng/mL N 98 Urine Phencyclidine Negative ng/mL N Cutoff: 25 Urine Tetrahydrocannabinol Negative ng/mL N Cutoff: 20 99 Urine Oxycodone Negative ng/mL N 100 Benzodiazepine 03/17/2014 [facility] Urine Negative N 101 Confirm Urine [address] Lorazepam ng/[place] [address] GC/MS [phone] Urine Nordiazepam GC/MS 1704 ng/mL N 102 Urine Oxazepam GC/MS 2733 ng/mL N 103 Urine Temazepam GC/MS 2289 ng/mL N 104 Ur Oh Ethyl Flurazepam GC/MS Negative ng/mL N 105 Ur 7 NH Clonazepam GC/MS Negative ng/mL N 106 Ur 7 NH Flunitrazepam GC/MS Negative ng/mL N Cutoff: 50 Ur Alpha Oh Alprazolam GC/MS Negative ng/mL N 107 Ur Alpha Oh Triazolam GC/MS Negative ng/mL N 108 Ur Benzodiazepine Interp Positive. N 109 Basic Metabolic Panel 05/11/2013 [facility] Sodium 134 mmol/L 133-[address] [place] [address] [phone] Potassium 3.4 mmol/L Low 3.5-5.0 Chloride 97 mmol/L Low 101-111 Co2 Carbon Dioxide 31.0 mmol/L 22-32 Anion Gap 6.0 mmol/L 2-11 Glucose 81 mg/dL 70-100 Blood Urea Nitrogen 8 mg/dL 6-24 Creatinine 0.80 mg/dL 0.50-1.40 BUN/Creatinine Ratio 10.0 8-20 Calcium 9.6 mg/dL 8.1-9.9 Egfr Non- 77.9 >60 Egfr 100.2 >60 110 Drug Abuse 01/13/2013 [facility] Urine Amphetamine Negative ng/ mL 111 [address] [place] [address] [phone] Urine Barbiturates Negative ng/mL 112 Urine Benzodiazepines Negative ng/mL 113 Urine Cocaine Negative ng/mL 114 Urine Methadone Negative ng/mL 115 Urine Opiates Negative ng/mL 116 Urine Phencyclidine Negative ng/mL Cutoff: 25 Urine Propoxyphene Negative ng/mL 117 Urine Tetrahydrocannabinol Negative ng/mL Cutoff: 20 118 Creatinine 55.4 mg/dL Specific [place] 1.004 pH 6.9 Oxidants Negative 119 Urine Opiates Screen Negative 120 Urine Codeine Confirmation Negative ng/mL 121 Urine Hydrocodone Confirm Negative ng/mL 122 Urine Hydromorphone Confirm Negative ng/mL 123 Urine Morphine Confirm Negative ng/mL 124 Urine Oxycodone Confirm Negative ng/mL 125 Urine Opiates Interpretation Negative. 126 Laboratory test 10/29/2012 [facility] Affirm Vaginal (SEE NOTE) [address] [address] [phone] Drug Abuse 20 10/29/2012 [facility] Urine Amphetamine Negative [address] ng/[place] [address] [phone] Urine Barbiturates Negative ng/mL 129 Urine Benzodiazepines Presumptive Posi <SEE NOTE> ng/mL 130 Urine Cocaine Negative ng/mL 131 Urine Methadone Negative ng/mL 132 Urine Opiates Negative ng/mL 133 Urine Phencyclidine Negative ng/mL Cutoff: 25 Urine Propoxyphene Negative ng/mL 134 Urine Tetrahydrocannabinol Negative ng/mL Cutoff: 20 135 Urine Opiates Screen Negative 136 Urine Codeine Confirmation Negative ng/mL 137 Urine Hydrocodone Confirm Negative ng/mL 138 Urine Hydromorphone Confirm Negative ng/mL 139 Urine Morphine Confirm Negative ng/mL 140 Urine Oxycodone Confirm Negative ng/mL 141 Urine Opiates Interpretation Negative. 142 Laboratory test 10/29/2012 [facility] Cyclic <15.6 [address] [place] [address] Pept IgG [phone] Benzodiazepine 10/29/2012 [facility] Urine Presumptive [address] Benzodiazepine Posi <[place] [address] Screen NOTE> [phone] Urine Lorazepam GC/MS Negative ng/mL 145 Urine Nordiazepam GC/MS 362 ng/mL 146 Urine Oxazepam GC/MS 350 ng/mL 147 Urine Temazepam GC/MS 239 ng/mL 148 Ur Oh Ethyl Flurazepam GC/MS Negative ng/mL 149 Ur 7 NH Clonazepam GC/MS Negative ng/mL 150 Ur 7 NH Flunitrazepam GC/MS Negative ng/mL Cutoff: 50 Ur Alpha Oh Alprazolam GC/MS Negative ng/mL 151 Ur Alpha Oh Triazolam GC/MS Negative ng/mL 152 Ur Benzodiazepine Interp Positive. 153 Creatinine 29.2 mg/dL Specific [place] 1.006 pH 7.5 Oxidants Negative 154 Cytology 10/02/2012 [facility] Cy RUN DATE: [address] 10/05/ <[place] [address] NOTE> [phone] Laboratory test 09/25/2012 [facility] Rheumatoid <15 IU/mL < [address] [place] [address] [phone] Erythrocyte Sed Rate 31 mm/Hr High 0-14 C Reactive Protein 0.9 mg/dL High Less than 0.5 Lois (Anti-Nuclear AB) Screen Negative Negative Laboratory test 09/25/2012 [facility] Potassium 3.8 mmol/L 3.5-5.[address] [place], [place] [address] [phone] Iron & Iron Binding 09/25/2012 [facility] Iron 132 g/dL 28- [address] [place], [place] [address] [phone] Unsaturated Iron Binding 217 g/dL Total Iron Binding Capacity 349 g/dL 250-450 % Iron Saturation 38 % 15-55 CBC Auto Diff 09/25/2012 [facility] White Blood 4.9 10^3/uL 4.8-10.[address] [place] [address] [phone] Red Blood Count 4.07 10^6/uL 4.0-5.4 Hemoglobin 12.0 g/dL 12.0-16.0 Hematocrit 36 % 35-47 Mean Corpuscular Volume 87 fL 80-97 Mean Corpuscular Hemoglobin 30 pg 27-31 Mean Corpuscular HGB Conc 34 g/dL 31-36 Red Cell Distribution Width 14 % 10.5-15 Platelet Count 186 10^3/uL 150-450 Mean Platelet Volume 12 um3 High 7.4-10.4 Abs Neutrophils 2.8 10^3/uL 1.5-7.7 Abs Lymphocytes 1.5 10^3/uL 1.0-4.8 Abs Monocytes 0.5 10^3/uL 0-0.8 Abs Eosinophils 0.1 10^3/uL 0-0.6 Abs Basophils 0 10^3/uL 0-0.2 Abs Nucleated RBC 0 10^3/uL Granulocyte % 56.6 % 38-83 Lymphocyte % 31.2 % 25-47 Monocyte % 9.6 % High 1-9 Eosinophil % 1.7 % 0-6 Basophil % 0.9 % 0-2 Nucleated Red Blood Cells % 0.1 Laboratory test 09/25/2012 [facility] Ferritin 80 ng/mL 11- [address] [place] [address] [phone] Laboratory test 09/22/2012 [facility] Affirm Vaginal (SEE NOTE) [address] [place] [address] [phone] Cytology RUN DATE: 09/23/ <SEE NOTE> 158 Ua Routine 09/22/2012 [facility] Ua Specific [place] 1.015 Ua PH 6.0 Ua Color yellow Ua Appera clear Ua WBC neg Ua Protein +30 Ua Glucose neg Ua Ketones neg Ua Bilirubin small Ua Urobilinogen neg Ua Nitrite neg Ua Occult Blood neg Urine Culture And 09/22/2012 [facility] Urine Culture (SEE NOTE ) [address] [place] [address] [phone] 1 REFERENCE VALUE Cutoff: 500 2 REFERENCE VALUE Cutoff: 200 3 Presumptive Positive Drug confirmation to follow. Presumptive Positive means that the screening method is positive, but the test needs to be run by a confirmatory method before being finalized. REFERENCE VALUE Cutoff: 100 4 REFERENCE VALUE Cutoff: 150 5 ADDITIONAL INFORMATION This report is intended for use in clinical monitoring or management of patients. It is not intended for use in employment-related testing. 6 REFERENCE VALUE Cutoff: 200 mg/L 7 Tylenol 3 8 Metabolite of codeine REFERENCE VALUE Cutoff: 100 9 Katie Mark, Contin; Also a minor metabolite (10%) of codeine and can be seen in low concentrations (<2,000 ng/mL) with poppy seed ingestion. 10 Metabolite of morphine REFERENCE VALUE Cutoff: 100 11 Metabolite of heroin 12 Lortab, [place], Vicodin; Also a very minor metabolite of codeine and impurity (<1%) of oxycodone. 13 Metabolite of hydrocodone 14 Metabolite of hydrocodone 15 Dilaudid, Exalgo; Also a metabolite of hydrocodone and a minor (<5%) metabolite of morphine. 16 Metabolite of hydromorphone REFERENCE VALUE Cutoff: 100 17 Endocet, Percocet, Oxycontin 18 Metabolite of oxycodone 19 Numorphan, Opana; Also a metabolite of oxycodone. 20 Metabolite of oxymorphone REFERENCE VALUE Cutoff: 100 21 Metabolite of oxymorphone 22 Actiq, Duragesic, Fentora 23 Metabolite of fentanyl 24 Demerol 25 Metabolite of meperidine 26 Narcan 27 Metabolite of naloxone REFERENCE VALUE Cutoff: 100 28 Dolophine 29 Metabolite of methadone 30 Darvon, Darvocet 31 Metabolite of propoxyphene 32 Tradol, Ultram, Ultracet 33 Metabolite of tramadol 34 Nucynta 35 Metabolite of tapentadol 36 Metabolite of tapentadol REFERENCE VALUE Cutoff: 100 37 Buprenex, Suboxone 38 Metabolite of buprenorphine 39 Metabolite of buprenorphine 40 No opioids were detected. The absence of expected drug(s) and/or drug metabolite(s) may indicate non-compliance, altered pharmacokinetics, inappropriate timing of specimen collection relative to drug administration, diluted/adulterated urine, or limitations of testing. ADDITIONAL INFORMATION This test was developed and its performance characteristics determined by [facility] in a manner consistent with CLIA requirements. This test has not been cleared or approved by the U.S. Food and Drug Administration. Test Performed by: [facility] - [address] [facility], [place] [address] 41 REFERENCE VALUE Cutoff: 100 42 REFERENCE VALUE Cutoff: 100 43 REFERENCE VALUE Cutoff: 100 44 REFERENCE VALUE Cutoff: 100 45 REFERENCE VALUE Cutoff: 100 46 REFERENCE VALUE Cutoff: 100 47 REFERENCE VALUE Cutoff: 100 48 REFERENCE VALUE Cutoff: 100 49 ADDITIONAL INFORMATION This report is intended for use in clinical monitoring and management of patients. It is not intended for use in employment-related testing. This test was developed and its performance characteristics determined by [facility] in a manner consistent with CLIA requirements. This test has not been cleared or approved by the U.S. Food and Drug Administration. Test Performed by: [facility] - [address] [address] 50 Because ethnic data is not always readily available, this report includes an eGFR for both -Americans and non- Americans. The National Kidney Disease Education Program (NKDEP) does not endorse the use of the MDRD equation for patients that are not between the ages of 18 and 70, are , have extremes of body size, muscle mass, or nutritional status, or are non- or non-. According to the National Kidney Foundation, irrespective of diagnosis, the stage of the disease is based on the level of kidney function: Stage Description GFR(mL/min/1.73 m(2)) 1 Kidney damage with normal or decreased GFR 90 2 Kidney damage with mild decrease in GFR 60-89 3 Moderate decrease in GFR 30-59 4 Severe decrease in GFR 15-29 5 Kidney failure <15 (or dialysis) 51 Desirable <150 Borderline high 150-199 High 200-499 Very High >500 52 Desirable <200 Borderline high 200-239 High >239 53 Low <40 Desirable: 40-60 High: >60 54 Desirable: <100 mg/dL Near Optimal: 100-129 mg/dL Borderline High: 130-159 mg/dL High: 160-189 mg/dL Very High: >189 mg/dL 55 SEE RESULT BELOW Name: MARIAM PALOMARES DOB: [address]: Agueda Fraire NP Acct: [id number] Unit: [id number] AGE: 46 Location: [facility] Re07/02/16 SEX: F Status: REG REF SPEC: [id number] CHRISTIANO: 07/02/16-[address]: Agueda Fraire NP REQ: [id number] RECD: 07/02/16 STATUS: COMP _ SOURCE: URINE SPDESC: ORDERED: Urine Culture COMMENTS: [id number] Urine Source: Random Procedure Result Reported Site Urine Culture Final 07/04/16- 0817 ML Organism 1 ESCHERICHIA COLI [place] Count >100,000 (Many) CFU/ML 1. ESCHERICHIA COLI M.I.C. RX --------- ------ Ampicillin <=2 S Cefazolin <=4 S Cefepime <=1 S Ceftriaxone <=1 S Ciprofloxacin <=0.25 S Gentamicin <=1 S Levofloxacin <=0.12 S Meropenem <=0.25 S Nitrofurantoin <=16 S Tetracycline <=1 S Pipercillin/Tazobactam <=4 S Trimethoprim/Sulfamethoxazole <=20 S Amoxicillin/Clavulanic Acid <=2 S Aztreonam <=1 S Contact the Microbiology Department for any additional antibiotic reporting. * ML - MAIN LAB ([facility]) . END OF REPORT * ML=Testing performed at Main Lab DEPARTMENT OF PATHOLOGY, [address] [place] [address] Charles Modi M.D. Director [facility] # [id number] 56 Therapeutic target for the treatment of diabetes Mellitus patients is <7% HBA1C, and in selective patients <6.0%.Please refer to [place] [employer] Diabetic care guidelines for further information. 57 FASTING 10 HOUR 58 SPRAINS STRAINS LEFT ANKLE OTHER 59 SEE RESULTS BELOW [id number] SEMITEN TRANSFUSED 02/20/15 0916 60 SEE RESULT BELOW Name: MARIAM PALOMARES : [address]: Fredy Diallo NP Acct: [id number] Unit: [id number] AGE: 44 Location: [facility] Re01/25/15 SEX: F Status: REG REF SPEC: [id number] CHRISTIANO: 01/25/15-1632 [facility] DR: Fredy Diallo PROGRESS DEVELOPER REQ: [id number] RECD: 01/26/15 STATUS: SOUT _ ORDERED: IMAGE ANALYSIS, HPV/Thin Prep, HPV 16/18 GENE FINAL DIAGNOSIS Negative for Intraepithelial lesion or Malignancy A. Vaginal Specimen Adequacy: Satisfactory of evaluation Patient Information: HPV: High risk HPV RNA testing regardless of pap results. HPV 16/18 Genotype for HPV pos Actual Specimen Date: 01/25/15 LMP If Unknown: 2011 ?: N Post Menopausal?: Y Hysterectomy?: N Previous Abnormal Pap Smears?:N Other Pertinent History: partial hysterectomy. Date Time Test Result Flag (u) Normal Range 01/25/15 1632 HPV RNA RFLX GE Negative Negative The high-risk HPV types detected by the assay include: 16, 18, 31, 33, 35, 39, 45, 51, 52, 56, 58, 59, 66, and 68. Signed (signature on file) SANTOS Silva (ASCP) 01/30 1218 This Pap test was evaluated with the assistance of the TreatoPrep Test Imaging System. Due to cytologic findings at the bar machine operator production microscope, comprehensive manual rescreening by a [employer] may be required. The Pap Smear is a screening test designed to aid in the detection of premalignant and malignant conditions of the uterine cervix. It is not a diagnostic procedure and should not be used as the sole means of detecting cervical cancer. Both false- positive and false- negative reports do occur. Depending on your risk status, a Pap smear should be obtained and evaluated every 1-3 years. END OF REPORT * ML=Testing performed at Main Lab DEPARTMENT OF PATHOLOGY, [address] [place] [address] Charles Modi M.D. Director [facility] # [id number] 61 Female urine specimens have been self-validated by [facility] and have been granted conditional assay approval by [facility]. 62 GC CHL SOURCE BLUE SWAB SENT BY OFFICE 63 SEE RESULT BELOW Name: MARIAM PALOMARES : [address]: Fredy Diallo NP Acct: [id number] Unit: [id number] AGE: 44 Location: [facility] Re01/25/15 SEX: F Status: REG REF SPEC: [id number] CHRISTIANO: 01/25/15-1632 [facility] DR: Fredy Diallo NP REQ: [id number] RECD: 01/25/15 STATUS: COMP _ SOURCE: VAGINAL SPDESC: ORDERED: Yusef,Yeast DNA Procedure Result Verified Site Gardnerella/Yeast: Vaginal DNA Final 01/27/15- 1058 ML Organism 1 POSITIVE GARDNERELLA Organism 2 Negative Maria Guadalupe The presence of G. vaginalis, although suggestive, is not diagnostic for bacterial vaginosis. Results should be interpreted in conjuction with other clinical and laboratory data available. Women with vaginal discharge should be evaluated for risk factors of cervicitis and pelvic inflammatory disease, toxic shock syndrome (S.aureus), and if present, evaluated for organisms not included in this assay such as N. gonorrhoeae, C. trachomatis, Mobiluncus, Mycoplasma and/or Prevotella. Mixed infections may occur. The performance of this test on patient specimens collected during or immediately after antimicrobial therapy is unknown. The presence or absence of Maria Guadalupe species, or G. vaginalis cannot be used as a test for therapeutic success or failure. * ML - MAIN LAB ([facility]) . END OF REPORT * ML=Testing performed at Main Lab DEPARTMENT OF PATHOLOGY, [address] [place] [address] Charles Modi M.D. Director [facility] # [id number] 64 The high-risk HPV types detected by the assay include: 16, 18, 31, 33, 35, 39, 45, 51, 52, 56, 58, 59, 66, and 68. 65 Because ethnic data is not always readily available, this report includes an eGFR for both -Americans and non- Americans. The National Kidney Disease Education Program (NKDEP) does not endorse the use of the MDRD equation for patients that are not between the ages of 18 and 70, are , have extremes of body size, muscle mass, or nutritional status, or are non- or non-. According to the National Kidney Foundation, irrespective of diagnosis, the stage of the disease is based on the level of kidney function: Stage Description GFR(mL/min/1.73 m(2)) 1 Kidney damage with normal or decreased GFR 90 2 Kidney damage with mild decrease in GFR 60-89 3 Moderate decrease in GFR 30-59 4 Severe decrease in GFR 15-29 5 Kidney failure <15 (or dialysis) 66 FASTING 10 HOUR 67 Desirable <150 Borderline high 150-199 High 200-499 Very High >500 68 Desirable <200 Borderline high 200-239 High >239 69 Low <40 Desirable: 40-60 High: >60 70 Desirable: <100 mg/dL Near Optimal: 100-129 mg/dL Borderline High: 130-159 mg/dL High: 160-189 mg/dL Very High: >189 mg/dL 71 Result in log IU/mL is Undetected. ADDITIONAL INFORMATION The quantification range of this assay is 15 to 100,000,000 IU/mL (1.18 log to 8.00 log IU/mL). Testing was performed by the EMILY AmpliPrep/EMILY TaqMan HCV Test, version 2.0 ([employer] Test Performed by: [place] [address] [employer]iotelephone Technical Operator: Marc Loyola M.D. 72 HCV Genotype, S was cancelled on 07/01/2014 at 07:54; Genotyping not performed due to inability to generate sufficient target sequence for genotype analysis. ADDITIONAL INFORMATION This test was performed using the Rothman RealTime HCV Genotype II assay ([employer] [place], [place]). Test Performed by: [place] [address] [employer] Technical Operator: Marc Loyola M.D. 73 PT IS FASTING 74 Because ethnic data is not always readily available, this report includes an eGFR for both -Americans and non- Americans. The National Kidney Disease Education Program (NKDEP) does not endorse the use of the MDRD equation for patients that are not between the ages of 18 and 70, are , have extremes of body size, muscle mass, or nutritional status, or are non- or non-. According to the National Kidney Foundation, irrespective of diagnosis, the stage of the disease is based on the level of kidney function: Stage Description GFR(mL/min/1.73 m(2)) 1 Kidney damage with normal or decreased GFR 90 2 Kidney damage with mild decrease in GFR 60-89 3 Moderate decrease in GFR 30-59 4 Severe decrease in GFR 15-29 5 Kidney failure <15 (or dialysis) 75 Normal Range 180 to 914 Indeterminate Range 145 to 180 Deficient Range <145 76 PT IS FASTING 77 PT IS FASTING 78 Test Performed by: [place] [id number] [employer] Technical Operator: Marc Loyola M.D. 79 Desirable <150 Borderline high 150-199 High 200-499 Very High >500 80 Desirable <200 Borderline high 200-239 High >239 81 Low <40 Desirable: 40-60 High: >60 82 Desirable <100 Near Optimal 100-129 Borderline high 130-159 High 160-189 Very High >189 83 PT IS FASTING 84 Verbal to answering service at 1423 on 06/27/14 by . Doctor to return call. High reactive sample are considered positive for Hepatitis C 85 -- REFERENCE VALUE -- Cutoff: 500 86 -- REFERENCE VALUE -- Cutoff: 200 87 Presumptive Positive Drug confirmation to follow. Presumptive Positive means that the screening method is positive, but the test needs to be run by a confirmatory method before being finalized. -- REFERENCE VALUE -- Cutoff: 200 88 -- REFERENCE VALUE -- Cutoff: 150 89 -- REFERENCE VALUE -- Cutoff: 150 90 -- REFERENCE VALUE -- Cutoff: 300 91 This report is intended for use in clinical monitoring or management of patients. It is not intended for use in employment-related testing. 92 -- REFERENCE VALUE -- Cutoff: 100 This report is intended for use in clinical monitoring or management of patients. It is not intended for use in employment-related testing. Test Performed by: [place] [address] [employer] Technical Operator: Carlos Key III, M.D. 93 -- REFERENCE VALUE -- Cutoff: 500 94 -- REFERENCE VALUE -- Cutoff: 200 95 Presumptive Positive Drug confirmation to follow. Presumptive Positive means that the screening method is positive, but the test needs to be run by a confirmatory method before being finalized. -- REFERENCE VALUE -- Cutoff: 200 96 -- REFERENCE VALUE -- Cutoff: 150 97 -- REFERENCE VALUE -- Cutoff: 150 98 -- REFERENCE VALUE -- Cutoff: 300 99 This report is intended for use in clinical monitoring or management of patients. It is not intended for use in employment-related testing. 100 -- REFERENCE VALUE -- Cutoff: 100 This report is intended for use in clinical monitoring or management of patients. It is not intended for use in employment-related testing. Test Performed by: [place] [address] [employer] Technical Operator: Carlos Key III, M.D. 101 -- REFERENCE VALUE -- Cutoff: 100 102 -- REFERENCE VALUE -- Cutoff: 100 103 -- REFERENCE VALUE -- Cutoff: 100 104 -- REFERENCE VALUE -- Cutoff: 100 105 -- REFERENCE VALUE -- Cutoff: 100 106 -- REFERENCE VALUE -- Cutoff: 100 107 -- REFERENCE VALUE -- Cutoff: 100 108 -- REFERENCE VALUE -- Cutoff: 100 109 This report is intended for use in clinical monitoring and management of patients. It is not intended for use in employment-related testing. Test Performed by: [address] [address] [employer] Technical Operator: Carlos Key III, M.D. 110 Because ethnic data is not always readily available, this report includes an eGFR for both -Americans and non- Americans. The National Kidney Disease Education Program (NKDEP) does not endorse the use of the MDRD equation for patients that are not between the ages of 18 and 70, are , have extremes of body size, muscle mass, or nutritional status, or are non- or non-. According to the National Kidney Foundation, irrespective of diagnosis, the stage of the disease is based on the level of kidney function: Stage Description GFR(mL/min/1.73 m(2)) 1 Kidney damage with normal or decreased GFR 90 2 Kidney damage with mild decrease in GFR 60-89 3 Moderate decrease in GFR 30-59 4 Severe decrease in GFR 15-29 5 Kidney failure <15 (or dialysis) 111 -- REFERENCE VALUE -- Cutoff: 500 112 -- REFERENCE VALUE -- Cutoff: 200 113 -- REFERENCE VALUE -- Cutoff: 200 114 -- REFERENCE VALUE -- Cutoff: 150 115 -- REFERENCE VALUE -- Cutoff: 300 116 -- REFERENCE VALUE -- Cutoff: 300 117 -- REFERENCE VALUE -- Cutoff: 300 118 This report is intended for use in clinical monitoring or management of patients. It is not intended for use in employment-related testing. 119 Test Performed by: [address] [address] [employer] Technical Operator: Carlos Key III, M.D. 120 -- REFERENCE VALUE -- Cutoff: 300 121 -- REFERENCE VALUE -- Cutoff: 100 122 -- REFERENCE VALUE -- Cutoff: 100 123 -- REFERENCE VALUE -- Cutoff: 100 124 -- REFERENCE VALUE -- Cutoff: 100 125 -- REFERENCE VALUE -- Cutoff: 100 126 This report is intended for use in clinical monitoring and management of patients. It is not intended for use in employment-related testing. Test Performed by: [facility] - [address] [address] [employer]le[employer] Technical Operator: Carlos Key III, M.D. 127 RUN DATE: 10/30/12 [facility] LIVE PAGE 1 RUN TIME: [address] [place] [address] Specimen Inquiry Name: MARIAM PALOMARES : [address]: Basia Harper MD Acct: [id number] Unit: [id number] AGE: 42 Location: [facility] Re10/29/12 SEX: F Status: REG REF SPEC: [id number] CHRISTIANO: 10/29/12-1116 [facility] DR: Basia Harper MD REQ: [id number] RECD: 10/29/12 STATUS: COMP _ SOURCE: VAGINAL SPDESC: ORDERED: Affirm QUERIES: Medent Number [id number] Procedure Result Verified Site Affirm Vaginal DNA Probe Final 10/30/12- 1209 ML Trichomonas Negative Gardnerella Positive Maria Guadalupe Positive The presence of G. vaginalis, although suggestive, is not diagnostic for bacterial vaginosis. Results should be interpreted in conjunction with other clinical and laboratory data available. Women with vaginal discharge should be evaluated for risk factors of cervicitis and pelvic inflammatory disease, toxic shock syndrome (S.aureus), and if present, evaluated for organisms not included in this assay such as N. gonorrhoeae, C. trachomatis, Mobiluncus, Mycoplasma and/or Prevotella. Mixed infections may occur. The performance of this test on patient specimens collected during or immediately after antimicrobial therapy is unknown. The presence or absence of Maria Guadalupe species, G. vaginalis or T. vaginalis cannot be used as a test for therapeutic success or failure. END OF REPORT * ML=Testing performed at Main Lab DEPARTMENT OF PATHOLOGY, [address] [place] [address] Charles Modi M.D. Director [facility] Permit #[id number] 128 -- REFERENCE VALUE -- Cutoff: 500 129 -- REFERENCE VALUE -- Cutoff: 200 130 Presumptive Positive Drug confirmation to follow. Presumptive Positive means that the screening method is positive, but the test needs to be run by a confirmatory method before being finalized. -- REFERENCE VALUE -- Cutoff: 200 131 -- REFERENCE VALUE -- Cutoff: 150 132 -- REFERENCE VALUE -- Cutoff: 300 133 -- REFERENCE VALUE -- Cutoff: 300 134 -- REFERENCE VALUE -- Cutoff: 300 135 This report is intended for use in clinical monitoring or management of patients. It is not intended for use in employment-related testing. 136 -- REFERENCE VALUE -- Cutoff: 300 137 -- REFERENCE VALUE -- Cutoff: 100 138 -- REFERENCE VALUE -- Cutoff: 100 139 -- REFERENCE VALUE -- Cutoff: 100 140 -- REFERENCE VALUE -- Cutoff: 100 141 -- REFERENCE VALUE -- Cutoff: 100 142 This report is intended for use in clinical monitoring and management of patients. It is not intended for use in employment-related testing. Test Performed by: [place] [address] [employer] Technical Operator: Carlos Key III, M.D. 143 -- REFERENCE VALUE -- <20.0 (Negative) Test Performed by: [place] [address] [employer] Technical Operator: Carlos Key III, M.D. 144 Presumptive Positive -- REFERENCE VALUE -- Cutoff: 200 145 -- REFERENCE VALUE -- Cutoff: 100 146 -- REFERENCE VALUE -- Cutoff: 100 147 -- REFERENCE VALUE -- Cutoff: 100 148 -- REFERENCE VALUE -- Cutoff: 100 149 -- REFERENCE VALUE -- Cutoff: 100 150 -- REFERENCE VALUE -- Cutoff: 100 151 -- REFERENCE VALUE -- Cutoff: 100 152 -- REFERENCE VALUE -- Cutoff: 100 153 This report is intended for use in clinical monitoring and management of patients. It is not intended for use in employment-related testing. Test Performed by: [place] [address] [employer] Technical Operator: Carlos Key III, M.D. 154 Test Performed by: [place] [address] [employer] Technical Operator: Carlos Key III, M.D. 155 RUN DATE: 10/05/12 [facility] LIVE PAGE 1 RUN TIME: [address], [place], [place] [address] Specimen Inquiry Name: MARIAM PALOMARES Oneyda : [address]: Basia Harper MD Acct: [id number] Unit: [id number] AGE: 42 Location: [facility] Re10/02/12 SEX: F Status: REG REF SPEC: [id number] CHRISTIANO: 10/02/12-[address]: Basia Harper MD REQ: [id number] RECD: 10/02/128 STATUS: SOUT _ ORDERED: IMAGE ANALYSIS FINAL DIAGNOSIS Please Repeat A. Vaginal Specimen Adequacy: Unsatisfactory for evaluation Insufficient epithelial component Patient Information: HPV: Thin Layer Pap Test w/reflex to high risk HPV DNA testing when ASCUS Actual Specimen Date: 10/02/12 Date of Last Specimen: 09/22/12 IUD: N ?: N Hysterectomy?: Y Other Pertinent History: Repeat pap, not enough cells on last pap Signed (signature on file) Charles Modi MD 9624 This Pap test was evaluated with the assistance of the ThinPrep Test Imaging System. Due to cytologic findings at the bar machine operator production microscope, comprehensive manual rescreening by a [employer] may be required. The Pap Smear is a screening test designed to aid in the detection of premalignant and malignant conditions of the uterine cervix. It is not a diagnostic procedure and should not be used as the sole means of detecting cervical cancer. Both false- positive and false- negative reports do occur. Depending on your risk status, a Pap smear shoudl be obtained and evaluated every 1-3 years. END OF REPORT * ML=Testing performed at Main Lab DEPARTMENT OF PATHOLOGY, [address] [place] [address] Charles Modi M.D. Director [facility] Permit #[id number] 156 Test Performed by: [address] [address] [employer]le[employer] Technical Operator: Carlos Key III, M.D. 157 RUN DATE: 09/23/12 [facility] LIVE PAGE 1 RUN TIME: 6602 [facility] [employer] [place], [place] [address] Specimen Inquiry Name: MARIAM PALOMARES : [address]: Basia Harper MD Acct: [id number] Unit: [id number] AGE: 42 Location: [facility] Re09/22/12 SEX: F Status: REG REF SPEC: [id number] CHRISTIANO: 09/22/[address]: Basia Harper MD REQ: [id number] RECD: 09/22/12 STATUS: COMP _ SOURCE: VAGINAL SPDESC: ORDERED: Affirm QUERIES: Medent Number [id number] Procedure Result Verified Site Affirm Vaginal DNA Probe Final 09/23/12- 1438 ML Trichomonas Positive Gardnerella Positive Maria Guadalupe Negative The presence of G. vaginalis, although suggestive, is not diagnostic for bacterial vaginosis. Results should be interpreted in conjunction with other clinical and laboratory data available. Women with vaginal discharge should be evaluated for risk factors of cervicitis and pelvic inflammatory disease, toxic shock syndrome (S.aureus), and if present, evaluated for organisms not included in this assay such as N. gonorrhoeae, C. trachomatis, Mobiluncus, Mycoplasma and/or Prevotella. Mixed infections may occur. The performance of this test on patient specimens collected during or immediately after antimicrobial therapy is unknown. The presence or absence of Maria Guadalupe species, G. vaginalis or T. vaginalis cannot be used as a test for therapeutic success or failure. END OF REPORT * ML=Testing performed at Main Lab DEPARTMENT OF PATHOLOGY, [employer] [place], [place] [address] Charles Modi M.D. Director [facility] Permit #[id number] 158 RUN DATE: 09/23/12 [facility] LIVE PAGE 1 RUN TIME: 4471 [facility] [employer] [place], [place] [address] Specimen Inquiry Name: MARIAM PALOMARES : [address]: Basia Harper MD Acct: [id number] Unit: [id number] AGE: 42 Location: [facility] Re09/22/12 SEX: F Status: REG REF SPEC: [id number] CHRISTIANO: 09/22/[address]: Basia Harper MD REQ: [id number] RECD: 09/22/12 STATUS: SOUT _ ORDERED: IMAGE ANALYSIS, PAP SM PATH REV FINAL DIAGNOSIS Please Repeat A. Vaginal Specimen Adequacy: Unsatisfactory for evaluation Insufficient epithelial component Patient Information: HPV: Thin Layer Pap Test w/reflex to high risk HPV DNA testing when ASCUS Actual Specimen Date: 09/22/12 IUD: N ?: N Hysterectomy?: Y Previous Abnormal Pap Smears?:N Signed (signature on file) Charles Modi MD 1551 This Pap test was evaluated with the assistance of the TreatoPrep Test Imaging System. Due to cytologic findings at the bar machine operator production microscope, comprehensive manual rescreening by a [employer] may be required. The Pap Smear is a screening test designed to aid in the detection of premalignant and malignant conditions of the uterine cervix. It is not a diagnostic procedure and should not be used as the sole means of detecting cervical cancer. Both false- positive and false- negative reports do occur. Depending on your risk status, a Pap smear shoudl be obtained and evaluated every 1-3 years. END OF REPORT * ML=Testing performed at Main Lab DEPARTMENT OF PATHOLOGY, [facility] [employer] [place], [place] [address] Charles Modi M.D. Director [facility] Permit #[id number] 159 RUN DATE: 09/24/12 [facility] LIVE PAGE 1 RUN TIME: 1042 [facility] [employer] [place], [place] [address] Specimen Inquiry Name: MARIAM PALOMARES : [address]: Basia Harper MD Acct: [id number] Unit: [id number] AGE: 42 Location: [facility] Re09/22/12 SEX: F Status: REG REF SPEC: [id number] CHRISTIANO: 09/22/[address]: Basia Harper MD REQ: [id number] RECD: 09/22/12 STATUS: COMP _ SOURCE: URINE SPDESC: ORDERED: Urine Culture QUERIES: Medent Number [id number] Procedure Result Verified Site Urine Culture Final 09/24/12- 1041 ML No Growth Day 2 (<1,000 CFU/mL) END OF REPORT * ML=Testing performed at Main Lab DEPARTMENT OF PATHOLOGY, [address] [place] [address] Charles Modi M.D. Director [facility] Permit #[id number] Procedures Date Code Description Status 04/16/2018 64784 Arthroscopy Ankle Debridement Extensive Completed 04/16/2018 28346 Arthroscopy Ankle Debridement Extensive Completed 04/16/2018 95241 Arthoscopy Ankle Excision Osteochondral Defect Completed 04/16/2018 97881 Arthoscopy Ankle Excision Osteochondral Defect Completed 12/10/2016 38230 Polysomnography Sleep Staging 4+ Parameters Completed 06/26/2016 39619981 Mammogram Completed 04/28/2015 64632 Walking Cast Completed 04/21/2015 37860414 Mammogram Completed 03/31/2015 24705 Walking Cast Completed 03/23/2015 97421 Short Leg Cast Completed 02/20/2015 70473 Partial Excision Bone Talus/Calcaneus Completed 02/20/2015 67399 Repair Collateral Ligament Ankle, Secondary Completed 03/16/2014 71004468 Colonoscopy Completed 03/02/2014 45971 Walking Cast Completed 02/11/2014 55180 Short Leg Cast Completed 01/28/2014 48657 Short Leg Cast Completed 01/24/2014 16422 Repair Collateral Ligament Ankle, Secondary Completed 01/24/2014 49874 Repair Collateral Ligament Ankle, Secondary Completed 10/06/2013 52260 Short Leg Cast Completed 03/25/2013 81916 Rad Exam; Hand Comp Completed 03/25/2013 92247 Rad Exam; Hand Comp Completed 03/25/2013 80171661 Mammogram Completed 11/21/2011 41766 Holter Monitoring 24 HR New Completed 11/18/2011 45410 ECHO Stress Test Incl Perf Contiuous ekg Monitoring Completed W/Phys Superv 10/29/2011 61394 ECHO Transthoracic, Real-Time 2D With Doppler And Color Completed Flow 10/29/2011 07261 EKG Tracing & Interpretation Completed Encounters Type Date Location Provider Dx Diagnosis Office Visit 03/27/2018 [facility] Gabbie, M93.272 Osteochondritis 1:00p Services Of oneyda Delgadillo ankle C.M.A. and joints of left foot Office Visit 02/25/2018 [facility] Jesus Malave, M93.972 Osteochondropathy, 11:15a Services Of Juwan Pimentel unspecified, left AT [place] ankle and foot M20.21 Hallux rigidus, right foot Office Visit 02/11/2018 [facility] M93.972 Osteochondropathy, 10:30a Services Of Juwan Malave M.D. unspecified, left ankle AT [place] and foot Office Visit 12/31/2017 [facility] Le76.72 Peroneal tendinitis, 3:00p Services Of Juwan Malave M.D. left leg AT [place] Office Visit 09/24/2017 [facility] Le76.72 Peroneal tendinitis, 11:45a Services Of Juwan Malave M.D. left leg AT [place] Office Visit 03/05/2017 [facility] Internal [place] Khoury G89.4 Chronic pain syndrome 2:10p Medicine - [place], [address] Margarito,FACP M54.42 Lumbago with sciatica, left side Office Visit 01/14/2017 3:15p Pulmonology And Tahira Matias, R09.02 Hypoxemia Sleep Services Of DARA, RN, DELIVERY AIDE[facility] R06.83 Snoring G47.10 Hypersomnia, unspecified Office Visit 11/19/2016 12:00p Pulmonology And Sleep Lachelle Duggan, R06.83 Snoring Services Of [facility] R06.81 Apnea, not elsewhere classified G47.10 Hypersomnia, unspecified R41.840 Attention and concentration deficit G47.8 Other sleep disorders R05 Cough Office Visit 11/13/2016 8:40a [facility] Internal Fredy Diallo, Z02.1 Encounter for Medicine - PROGRESS DEVELOPER pre-employment [address] examination K64.8 Other hemorrhoids K59.09 Other constipation Z23 Encounter for immunization K64.9 Unspecified hemorrhoids K59.00 Constipation, unspecified Z11.1 Encounter for screening for respiratory tuberculosis Office Visit 10/09/2016 11:20a [facility] Internal Medicine Fredy Diallo NP R06.83 Snoring - [address] E66.8 Other obesity J30.2 Other seasonal allergic rhinitis Office Visit 07/02/2016 [facility] Internal Agueda Fraire, N39.0 Urinary tract 4:00p Medicine - N.P. infection, site not [place] specified Office Visit 06/19/2016 [facility] Jesus M20.11 Hallux valgus 11:30a Services Of Juwan Malave M.D. (acquired), right AT [place] foot Office Visit 01/10/2016 [facility] Jesus G57.92 Unspecified 4:10p Services Of Margarito Malave mononeuropathy of C.M.A. left lower limb S93.492D Sprain of other ligament of left ankle, subsequent encounter Office Visit 10/17/2015 [facility] Jesus G57.92 Unspecified 8:20a Services Of Juwan Malave M.D. mononeuropathy of AT [place] left lower limb Office Visit 10/13/2015 [facility] Internal Fredy Diallo, K64.9 Unspecified 2:40p Medicine - [place] PROGRESS DEVELOPER hemorrhoids Rd K64.4 Residual hemorrhoidal skin tags Office Visit 09/19/2015 [facility] G57.92 Unspecified 8:20a Services Of Juwan Malave M.D. mononeuropathy of AT [place] left lower limb Office Visit 09/06/2015 [facility] Internal [place] Khoury M54.42 Lumbago with 11:30a Medicine - [place], sciatica, left side Ezra Pimentel,FACP Office Visit 08/29/2015 [facility] G57.92 Unspecified 8:20a Services Of Juwan Malave M.D. mononeuropathy of AT [place] left lower limb Office Visit 07/21/2015 [facility] Jesus S93.492D Sprain of other 9:00a Services Of Margarito Malave ligament of left C.M.A. ankle, subsequent encounter Office Visit 06/21/2015 [facility] Internal Abhay García, N95.1 Menopausal and 2:20p Medicine - PROGRESS DEVELOPER female climacteric [facility] Office Visit 06/21/2015 Orthopedic Jesus S93.492D Sprain of other 1:50p Services Of Margarito Malave ligament of left C.M.A. ankle, subsequent encounter Office Visit 05/16/2015 [facility] Internal [place] Khoury R10.31 Right lower 10:10a Medicine - [place], quadrant pain Jeanne Pimentel,FACP M51.16 Intervertebral disc disorders w radiculopathy, lumbar region Office Visit 02/15/2015 3:10p Orthopedic Jesus 845.09 Sprains & Strains Services Of Margarito Malave Ankle Other C.M.A. Office Visit 02/08/2015 2:40p Orthopedic Jesus 719.47 Pain Joint Ankle Services Of Margarito Malave & Foot C.M.A. Office Visit 02/01/2015 4:20p [facility] [place] Khoury 722.93 Disc Disorder Medicine - [place], Other & [address] MZohra,FACP Lumbar Region Office Visit 01/25/2015 3:00p [facility] Internal Fredy Diallo, V70.0 Examination Medicine - [place] PROGRESS DEVELOPER [address] Routine AT [facility] V72.31 Routine Accounts Payable Lead Examination V76.19 Screening Breast Exam Malignant Neoplasms Other V74.1 Screening Examination Pulmonary Tuberculosis 722.93 Disc Disorder Other & Unspec Lumbar Region 719.47 Pain Joint Ankle & Foot v06.1 Yuzmrobegk-Jceqlmy-Fxjshdbp Combined (DTaP) v74.1 Screening Examination Pulmonary Tuberculosis V77.91 Screening For Lipoid Disorders V77.1 Screening Diabetes Mellitus 564.09 Constipation Other 786.09 Dyspnea & Respiratory Abnormalities Other Office Visit 01/20/2015 11:00a [facility] Internal [place] Khoury 722.93 Disc Disorder Medicine - Sacha Leroy M.D.,FACP Other & [address] Lumbar Region 564.09 Constipation Other 401.1 Hypertension Benign Office Visit 07/01/2014 3:40p [facility] Internal [place] Khoury 401.1 Hypertension Karen Leroy M.D.,FACP Benign [place] V02.62 Hepatitis C Carrier 724.2 Lumbago Office Visit 06/27/2014 3:30p Neurosurgery Amilcar Sr, 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 [place] 285.9 Anemia Unspec 296.80 Bipolar Disorder NOS 724.5 Backache Unspec Office Visit 03/17/2014 [facility] Internal Basia Harper, 724.2 Lumbago 9:00a Medicine - Margarito [place] Office Visit 11/10/2013 Orthopedic Jesus Malave, 845.09 Sprains & Strains 2:45p Services Of M.D. Ankle Other C.M.A. Office Visit 10/26/2013 Orthopedic Jesus Malave, 845.09 Sprains & Strains 3:15p Services Of M.D. Ankle Other C.M.A. Office Visit 10/06/2013 Orthopedic Jesus Malave 845.09 Sprains & Strains 2:15p Services Of M.D. Ankle Other C.M.A. Office Visit 03/25/2013 Orthopedic Ching 715.04 Osteoarthrosis 11:00a Services Of Margarito Mosley Generalized Hand C.M.A. Office Visit 02/02/2013 [facility] Internal Basia Harper, 300.02 Anxiety Disorder 10:00a Karen Kern M.D. Generalized [place] 715.04 Osteoarthrosis Generalized Hand 626.7 Postcoital Bleeding Office Visit 01/13/2013 10:50a [facility] Internal [place] 041.89 Bacterial Karen Mcgregor M.D. Infection Other [place] Spec 112.9 Candidiasis Unspec Site 300.02 Anxiety Disorder Generalized Office Visit 10/29/2012 10:40a [facility] Internal [place] 131.01 Trichomonal Karen Harper M.D. Vulvovaginitis [place] 285.8 Anemia Other Spec 842.10 Sprains & Strains Hand Unspec Site 300.02 Anxiety Disorder Generalized Office Visit 09/22/2012 1:00p [facility] Internal [place] 616.10 Vaginitis & Karen Harper M.D. Vulvovaginitis [place] Unspec 715.04 Osteoarthrosis Generalized Hand 285.8 Anemia Other Spec 300.02 Anxiety Disorder Generalized 276.8 Hypopotassemia Office 12/11/2011 [facility] 794.31 Electrocardiogram Visit 10:00a Cardiology Margarito Perez (ECG) (EKG) Abnormal 401.1 Hypertension Benign Office 10/29/2011 [employer] 794.31 Electrocardiogram Visit 9:00a Cardiology Margarito Perez (ECG) (EKG) Abnormal 401.1 Hypertension Benign Plan of Treatment Future Appointment(s):08/03/2018 8:00 am - Dom Cartwright [facility]07/06/2018 - Rama Daniels MDG89.4 Chronic pain syndromeNew Medication:Gabapentin 300 mg - take one tablet three times a dayReferral: Peter Hansen MD, Physical Medicine/VayjoJ31.1 Encounter for screening for diabetes [id number] Hypokalemia
[2018-07-06] MEDS ORDERED: Ketorolac INJ* 60 MG/2 ML VIAL IM ONE (14:23)
[2018-07-06] MEDS ORDERED: Buprenorp/Nalox 2-0.5 MG SL TB 1 EACH TAB.SUBL SL ONE (15:56)
--- NOTE | 2018-07-06 16:43 | ED ---
Complex/Multi-Sys Presentation - HPI Summary HPI Summary: Patient is a 48-year-old female presenting to the ED with her request for pain medications. She states she is no longer with her PCP office or her pain clinic. She does bring in a letter showing provider she was released from the pain clinic in April, however I stop reveals pain clinic continued to prescribe her short-acting and long-acting oxycodone's up until 06/05/2018 and 06/14/18 respectively. She states she is on these medications for chronic pain and is unable to discontinue them due to her pain and fear of withdrawal. She is requesting short acting oxycodone she has not had this medication for at least one week per patient and does not wish to continue her long-acting oxycodone stating "this does not work." She shows the provider she has 7 tablets left although according to I stop she should have 18. She does have a follow-up with the reach program next week. - History Of Current Complaint Chief Complaint: EDPrescriptionNeeded Time Seen by Provider: 07/06/18 13:32 Hx Obtained From: Patient Onset/Duration: Sudden Onset Timing: Constant Severity Currently: Moderate Severity Initially: Moderate Location: Pain At: - diffuse Associated Signs And Symptoms: Positive: Agitation, Recent Medication Changes. Negative: Dizziness, Vomiting, Diarrhea, Abdominal Pain - Allergies/Home Medications Allergies/Adverse Reactions: Allergies Allergy/AdvReac Type Severity Reaction Status Date / Time acetaminophen [From Vicodin] Allergy Severe Itching Verified 04/16/18 07:05 hydrocodone [From Vicodin] Allergy Severe Itching Verified 04/16/18 07:05 Sulfa (Sulfonamide Allergy Severe Hives, Verified 04/16/18 07:05 Antibiotics) itching buspirone [From BuSpar] Allergy Itching Verified 04/16/18 07:05 PMH/Surg Hx/FS Hx/Imm Hx Previously Healthy: Yes Endocrine/Hematology History: Denies: Hx Diabetes Cardiovascular History: Reports: Hx Hypertension - ON MEDS Denies: Hx Pacemaker/ICD GI History: Reports: Other GI Disorders - hx constipation Musculoskeletal History: Reports: Hx Arthritis - index finger Sensory History: Reports: Hx Contacts or Glasses - contacts Denies: Hx Hearing Aid Opthamlomology History: Reports: Hx Contacts or Glasses - contacts Psychiatric History: Reports: Hx Anxiety - bipolar, Hx Depression Denies: Hx Panic Disorder - Cancer History Hx Chemotherapy: No - Surgical History Surgery Procedure, Year, and Place: PARTIAL HYSTERECTOMY 2012, LT ANKLE 2013, 2014 Hx Anesthesia Reactions: No - Immunization History Hx Pertussis Vaccination: No Immunizations Up to Date: Yes Infectious Disease History: No Infectious Disease History: Denies: Traveled Outside the [place] in Last 30 Days - Social History Occupation: Unemployed Lives: Alone Alcohol Use: Occasionally Hx Substance Use: No Substance Use Type: Reports: None Hx Tobacco Use: Yes Smoking Status (MU): Former Smoker Review of Systems Negative: Fever, Chills, Fatigue, Skin Diaphoresis Negative: Palpitations, Chest Pain Negative: Shortness Of Breath, Cough Genitourinary: Negative Positive: no symptoms reported, see HPI Positive: Arthralgia, Myalgia Negative: Rash, Bruising Positive: Anxious All Other Systems Reviewed And Are Negative: Yes Physical Exam Triage Information Reviewed: Yes Vital Signs On Initial Exam: Initial Vitals Temp Pulse Resp BP Pulse Ox 98.2 F 80 16 176/118 98 07/06/18 12:22 07/06/18 12:22 07/06/18 12:22 07/06/18 12:22 07/06/18 12:22 Vital Signs Reviewed: Yes Appearance: Positive: Well-Appearing, Well-Nourished Skin: Positive: Warm, Skin Color Reflects Adequate Perfusion Head/Face: Positive: Normal Head/Face Inspection Eyes: Positive: Normal, SHILA, Conjunctiva Clear Neck: Positive: Supple, No Lymphadenopathy Respiratory/Lung Sounds: Positive: Clear to Auscultation, Breath Sounds Present Cardiovascular: Positive: RRR, Pulses are Symmetrical in both Upper and Lower Extremities Musculoskeletal: Positive: Pain @ - diffuse Neurological: Positive: Sensory/Motor Intact, Alert, Oriented to Person Place, Time, Facial Symmetry Psychiatric: Positive: Affect/Mood Appropriate, Patient Uncooperative for Exam Diagnostics - Vital Signs Vital Signs Temp Pulse Resp BP Pulse Ox 07/06/18 12:22 98.2 F 80 16 176/118 98 - Laboratory Lab Statement: Any lab studies that have been ordered have been reviewed, and results considered in the medical decision making process. Complex Multi-Symp Course/Dx Course Of Treatment: After offering patient several treatment options, patient declines all and becomes very upset. I've agreed to call Dr. Martell office as well as her PCP, Dr. Ervin's office to obtain more information. Discussed with Dr. Ervin's office, Otoniel SERNA, who states Dr. Jean is not prescribe these medications and patient was aware. According to the note from Dr. Martell, the breech of contract in April, she was subsequently discontinued on the medications. I have told her we are willing to offer her Suboxone to prevent withdrawals to which she agrees. I have asked Dr. Milton to consult with her regarding Suboxone in the reach program. After a small dose of Suboxone given in the ED, patient had a verbal altercation with the RN and left. - Diagnoses Provider Diagnoses: Chronic pain, Opioid abuse, Request for narcotic pain medication Discharge - Sign-Out/Discharge Documenting (check all that apply): Patient Departure - Discharge Plan Condition: Stable Disposition: ELOPEMENT Prescriptions: Ketorolac TAB * [Toradol TAB *] 10 mg PO Q6H #16 tab predniSONE TAB* [Deltasone TAB*] 50 mg PO DAILY #5 tab MDD 1 Referrals: No Primary Care Phys,NOPCP [Primary Care Provider] - Additional Instructions: Please follow up with Scotty Martell or see a new PCP [phone] - Please call to see a new PCP ([facility]) Prednisone once daily x 5 days Toradol up to four times daily x 4 days - Billing Disposition and Condition Condition: STABLE Disposition: Elopement
[2018-07-06] MEDS ORDERED: Buprenorp/Nalox 8-2 MG SL TAB.SL PO ONE (16:59)
[2018-07-06 17:10] VITALS: BP 00/00
--- NOTE | 2018-07-06 21:37 | CONSULT ---
Consult Consult: Ms. Garibay presented to the emergency department with a concern that her medications had been discontinued by her pain doctor Dr. Martell. She was on both long-acting and short-acting oxycodone. She is mostly concerned about the short-acting oxycodone and still has the long-acting prescription which she brings to the emergency department. She has been planning on following with [facility] which she was referred to. I discussed with her the possibility of starting Suboxone that can be continued at [facility]. She tells me that even though she has the long-acting narcotics she has not been taking them for at least 2 days. I stressed to her that if we were to start Suboxone at this time and she was taking oxycodone the last couple of days, I could make her feel worse. She insisted that she had not had any narcotics for at least 2 days. A COWS was only four. Finally I agreed to give her 2 mg of Suboxone because I was concerned about possibly precipitating withdrawal. After about 45 minutes she felt no different. She certainly clinically was not worse. Therefore I recommended we give her 8 mg as she was getting impatient. She apparently had some kind of verbal disagreement with the charge nurse and left the department prior to getting the 8 mg of Suboxone.
== END 2018-07-06 17:08 | disposition home or self-care (01) ==
LOC: ED 12:19
DX: G89.29 Other chronic pain (principal); F11.10 Opioid abuse, uncomplicated; I10 Essential (primary) hypertension; F32.9 Major depressive disorder, single episode, unspecified; Z87.891 Personal history of nicotine dependence
CPT/HCPCS: 96372; 99282; A9270-GY; J1885